=== PATIENT | female | born 1960 | race Caucasian/White ===

== ENCOUNTER → 2017-04-16 | Outpatient (CLI) | payer BC | END | disposition home or self-care (01) | LOC: MAMMO 10:11 | DX: Z12.31 Encounter for screening mammogram for malignant neoplasm of breast (principal) | CPT/HCPCS: 77067 ==

== ENCOUNTER 2019-03-27 13:37 | Emergency (ER) | payer BC ==
[2019-03-27 15:11] LABS: BASO % 0 % (0-3); EOS % 0 % (0-3); HEMATOCRIT 43.5 % (36.0-47.0); LYMPH # 0.7 x10^3/uL (1.0-4.8); LYMPH % 9 % (24-48); MEAN CORPUSCULAR HEMOGLOBIN 30 pg (25-35); MEAN CORPUSCULAR HGB CONC 35 g/dL (31-37); MEAN CORPUSCULAR VOLUME 87 fL (79-100); MONO # 0.5 x10^3/uL (0.0-1.1); MONO % 6 % (0-9); NEUT # 7.3 x10^3/uL (1.8-7.7); NEUT % 86 % (31-73); PLATELET COUNT 395 x10^3/uL (140-400); RED BLOOD COUNT 5.02 x10^6/uL (3.50-5.40); RED CELL DISTRIBUTION WIDTH 14.1 % (11.5-14.5); WHITE BLOOD COUNT 8.5 x10^3/uL (4.0-11.0)
[2019-03-27 15:23] LABS: ALBUMIN 4.1 g/dL (3.4-5.0); ALBUMIN/GLOBULIN RATIO 1.1 (1.0-1.7); CALCIUM 9.4 mg/dL (8.5-10.1); CREATININE 0.8 mg/dL (0.6-1.0); GFR 73.7; MAGNESIUM 1.3 mg/dL (1.8-2.4); TOTAL BILIRUBIN 1.2 mg/dL (0.2-1.0); TOTAL PROTEIN 7.7 g/dL (6.4-8.2)
[2019-03-27 15:26] LABS: POTASSIUM 2.8 mmol/L (3.5-5.1)
[2019-03-27] MEDS ORDERED: POTASSIUM CHLORIDE 20 MEQ TABLET.ER. PO ONE (15:30)
[2019-03-27] MEDS ORDERED: IV NORMAL SALINE 1000ML BAG 1,000 ML IV ONE (15:30)
[2019-03-27] MEDS ORDERED: ONDANSETRON PF 4 MG/2 ML VIAL. IV ONE (15:30)
[2019-03-27 15:36] LABS: BILIRUBIN,URINE NEGATIVE (NEG); CLARITY,URINE CLEAR; COLOR,URINE YELLOW; NITRITE,URINE NEGATIVE (NEG); PH,URINE 6.5; PROTEIN,URINE >=300 mg/dL (NEG-TRACE); UROBILINOGEN,URINE 0.2 mg/dL (0.2 mg/dL)
--- NOTE | 2019-03-27 15:41 | PHYS DOC ---
Past Medical History Past Medical History: High Cholesterol, Hypertension Additional Past Medical Histor: KIDNEY DISEASE, KIDNEY TRANSPLANT Past Surgical History: Other Alcohol Use: Occasionally Adult General Chief Complaint Chief Complaint: NAUSEA/VOMITING/[facility] HPI Patient is a 59 year old female, accompanied by her spouse, who presents to the emergency department with complaints of nausea and vomiting since approximately 1 AM today. Patient states she has vomited at least 12 times. She denies any fever, cough, shortness of breath, chest pain, palpitations, dysuria, increased urinary frequency, hematuria, back pain, diarrhea, or abdominal pain. She also denies any headache, dizziness, numbness, tingling, weakness, or vision changes. She currently rates her pain as 0 out of 10 on the pain scale. She reports that she has had a kidney transplant in the past and that she was able to take her blood pressure and antirejection medications this morning. She states that she has been unable to keep anything else down however. All other ROS is neg unless otherwise noted in HPI. Review of Systems Review of Systems See Above Current Medications Current Medications Current Medications Medications (Trade) Dose Ordered Sig/Ki Start Time Stop Time Status Last Admin Dose Admin Magnesium Oxide (Magnesium Oxide) 400 mg DAILY 03/28/19 09:00 Ondansetron HCl (Zofran) 4 mg 1X ONCE 03/27/19 15:30 03/27/19 15:31 DC 03/27/19 15:35 4 MG Potassium Chloride (Klor-Con) 40 meq 1X ONCE 03/27/19 15:30 03/27/19 15:31 DC 03/27/19 15:35 40 MEQ Sodium Chloride 1,000 ml @ 1,000 mls/hr 1X ONCE 03/27/19 15:30 03/27/19 16:29 03/27/19 15:35 1,000 MLS/HR Allergies Allergies Allergies Coded Allergies Type Severity Reaction Last Updated Verified acetaminophen Allergy Intermediate 03/27/19 Yes codeine Allergy Intermediate 03/27/19 Yes oxycodone Allergy Intermediate 03/27/19 Yes tramadol Allergy Intermediate 03/27/19 Yes Physical Exam Physical Exam See Above Constitutional: Well developed, well nourished, no acute distress, non-toxic appearance. [] HENT: Normocephalic, atraumatic, bilateral external ears normal, dry oral mucosa, no oral exudates, nose normal. [] Eyes: PERRLA, EOMI, conjunctiva normal, no discharge. [] Neck: Normal range of motion, no tenderness, supple, no stridor. [] Cardiovascular:Heart rate regular rhythm, no murmur [] Lungs & Thorax: Bilateral breath sounds clear to auscultation, Respirations even and unlabored, no retractions, no respiratory distress [] Abdomen: Bowel sounds normal, soft, no tenderness, no masses, no pulsatile masses. [] Skin: Warm, dry, no erythema, no rash. [] Back: No tenderness, no CVA tenderness. [] Extremities: No cyanosis, ROM intact, no edema. [] Neurologic: Alert and oriented X 3, no focal deficits noted. [] Psychologic: Affect normal, judgement normal, mood normal. [] Current Patient Data Vital Signs Vital Signs Date Time Temp Pulse Resp B/P (MAP) Pulse Ox O2 Delivery O2 Flow Rate FiO2 03/27/19 13:40 97.6 82 14 192/88 (122) 98 Room Air 97.6 Lab Values Laboratory Tests Test 03/27/19 14:10 03/27/19 15:20 White Blood Count 8.5 x10^3/uL (4.0-11.0) Red Blood Count 5.02 x10^6/uL (3.50-5.40) Hemoglobin 15.0 g/dL (12.0-15.5) Hematocrit 43.5 % (36.0-47.0) Mean Corpuscular Volume 87 fL (79-100) Mean Corpuscular Hemoglobin 30 pg (25-35) Mean Corpuscular Hemoglobin Concent 35 g/dL (31-37) Red Cell Distribution Width 14.1 % (11.5-14.5) Platelet Count 395 x10^3/uL (140-400) Neutrophils (%) (Auto) 86 % (31-73) H Lymphocytes (%) (Auto) 9 % (24-48) L Monocytes (%) (Auto) 6 % (0-9) Eosinophils (%) (Auto) 0 % (0-3) Basophils (%) (Auto) 0 % (0-3) Neutrophils # (Auto) 7.3 x10^3/uL (1.8-7.7) Lymphocytes # (Auto) 0.7 x10^3/uL (1.0-4.8) L Monocytes # (Auto) 0.5 x10^3/uL (0.0-1.1) Eosinophils # (Auto) 0.0 x10^3/uL (0.0-0.7) Basophils # (Auto) 0.0 x10^3/uL (0.0-0.2) Platelet Estimate Pending Sodium Level 134 mmol/L (136-145) L Potassium Level 2.8 mmol/L (3.5-5.1) *L Chloride Level 94 mmol/L (98-107) L Carbon Dioxide Level 26 mmol/L (21-32) Anion Gap 14 (6-14) Blood Urea Nitrogen 15 mg/dL (7-20) Creatinine 0.8 mg/dL (0.6-1.0) Estimated GFR (Cockcroft-Gault) 73.7 BUN/Creatinine Ratio 19 (6-20) Glucose Level 114 mg/dL (70-99) H Calcium Level 9.4 mg/dL (8.5-10.1) Magnesium Level 1.3 mg/dL (1.8-2.4) L Total Bilirubin 1.2 mg/dL (0.2-1.0) H Aspartate Amino Transferase (AST) 21 U/L (15-37) Alanine Aminotransferase (ALT) 19 U/L (14-59) Alkaline Phosphatase 91 U/L (46-116) Total Protein 7.7 g/dL (6.4-8.2) Albumin 4.1 g/dL (3.4-5.0) Albumin/Globulin Ratio 1.1 (1.0-1.7) Lipase 118 U/L (73-393) Urine Collection Type Unknown Urine Color Yellow Urine Clarity Clear Urine pH 6.5 Urine Specific [place] 1.015 Urine Protein >=300 mg/dL (NEG-TRACE) Urine Glucose (UA) Negative mg/dL (NEG) Urine Ketones (Stick) 15 mg/dL (NEG) Urine Blood Negative (NEG) Urine Nitrite Negative (NEG) Urine Bilirubin Negative (NEG) Urine Urobilinogen Dipstick 0.2 mg/dL (0.2 mg/dL) Urine Leukocyte Esterase Negative (NEG) Urine RBC 3-5 /HPF (0-2) Urine WBC 1-4 /HPF (0-4) Urine Squamous Epithelial Cells Few /LPF Urine Transitional Epithelial Cells Occ /LPF Urine Bacteria 0 /HPF (0-FEW) Urine Hyaline Casts Few /HPF Urine Mucus Slight /LPF Laboratory Tests 03/27/19 14:10 Laboratory Tests 03/27/19 14:10 EKG EKG [] Radiology/Procedures Radiology/Procedures [] Course & Med Decision Making Course & Med Decision Making Pertinent Labs and Imaging studies reviewed. (See chart for details) Patient's potassium was 2.8, magnesium is 1.3. Patient was given 40 meq PO potassium and 400 mg PO magnesium in the emergency department. She is also given a liter of normal saline and 4 mg of Zofran. Patient reported feeling better after these medications. She was able to tolerate by mouth meds and a by mouth fluid challenge in the emergency room without any vomiting. Vital signs are stable. CBC is unremarkable, CMP revealed sodium of 134, chloride of 94, potassium of 2.8, magnesium 1.3, and a bilirubin of 1.2, otherwise unremarkable; UA is unremarkable Prescription was written for Zofran, patient was encouraged to drink clear fluids for 24 hours and advance to brat diet then as tolerated. Follow-up with her primary care Dr. Mane on Friday, return to the ER if symptoms worsen. Patient verbalized an understanding of home care, medications, follow-up, and return to ED instructions and was in agreement with the plan of care. Plan of care was discussed with Dr. Rojas prior to discharge. [] Dragon Disclaimer Dragon Disclaimer This electronic medical record was generated, in whole or in part, using a voice recognition dictation system. Departure Departure Impression: Primary Impression: Nausea & vomiting Additional Impressions: Hypokalemia Hypomagnesemia Disposition: 01 HOME, SELF-CARE Condition: STABLE Referrals: MARCELLUS JAMISON MD (PCP) Patient Instructions: Hypokalemia, Hypomagnesemia, Nausea and Vomiting, Flmm-ck-Tayp Additional Instructions: Fill prescriptions and use them as directed. Recommend clear fluids for the next 24 hours. Then you may advance to bland foods such as bananas, rice, applesauce, and dry toast. Follow-up with your primary care doctor in the next 1-2 days. Return to the emergency room if your symptoms worsen. Scripts Ondansetron Hcl (ONDANSETRON HCL) 4 Mg Tablet 1 TAB PO PRN Q6HRS PRN for NAUSEA/VOMITING for 3 Days, #10 TAB 0 Refills Prov: KENNETH JOYA [employer] 03/27/19 Problem Qualifiers Primary Impression: Nausea & vomiting Vomiting type: unspecified Vomiting Intractability: non-intractable Qualified Codes: R11.2 - Nausea with vomiting, unspecified KENNETH JOYA [employer] Mar 27, 2019 15:41
[2019-03-27 15:47] LABS: HYALINE CASTS, URINE FEW /HPF; SQUAMOUS EPITHELIAL CELL,UR FEW /LPF
[2019-03-27 15:48] LABS: BACTERIA,URINE 0 /HPF (0-FEW)
[2019-03-27 16:03] VITALS: BP 182/85
[2019-03-27] MEDS ORDERED: ONDA-84 PO (16:30)
[2019-03-27 19:40] LABS: % ATYL 2 % (0-0); % LYMPHS 13 % (24-48); % MONOS 4 % (0-10); % SEGS 81 % (35-66); PLT ESTIMATE ADEQUATE (ADEQUATE)
[2019-03-28] MEDS ORDERED: MAGNESIUM OXIDE 400 MG TABLET PO SCH (09:00)
== END 2019-03-27 16:42 | disposition home or self-care (01) ==
LOC: ER 13:37
DX: R11.2 Nausea with vomiting, unspecified (principal); E87.6 Hypokalemia; E83.42 Hypomagnesemia; E78.00 Pure hypercholesterolemia, unspecified; I10 Essential (primary) hypertension; Z98.890 Other specified postprocedural states; Z88.5 Allergy status to narcotic agent; Z88.6 Allergy status to analgesic agent
CPT/HCPCS: 36415; 80053; 81001; 83690; 83735; 85007; 85025; 96361; 96374; 99284; J2405; J7030

== ENCOUNTER 2019-11-21 09:52 | Emergency (ER) | payer BC ==
[~2019-11-21] VITALS: Ht 157.5 cm; Wt 55.0 kg
[~2019-11-21 09:52] MED LIST: ONDA-84 PO
[2019-11-21 10:23] LABS: BILIRUBIN,URINE NEGATIVE (NEG); CLARITY,URINE CLEAR; COLOR,URINE YELLOW; NITRITE,URINE NEGATIVE (NEG); PROTEIN,URINE >=300 mg/dL (NEG-TRACE); UROBILINOGEN,URINE 0.2 mg/dL (0.2 mg/dL)
[2019-11-21 10:37] LABS: BACTERIA,URINE 0 /HPF (0-FEW); SQUAMOUS EPITHELIAL CELL,UR OCC /LPF; WBC,URINE RARE /HPF (0-4)
[2019-11-21 10:51] LABS: ALBUMIN 3.1 g/dL (3.4-5.0); ALBUMIN/GLOBULIN RATIO 0.8 (1.0-1.7); CALCIUM 8.6 mg/dL (8.5-10.1); CREATININE 0.9 mg/dL (0.6-1.0); GFR 64.3; TOTAL BILIRUBIN 1.1 mg/dL (0.2-1.0); TOTAL PROTEIN 6.9 g/dL (6.4-8.2)
[2019-11-21 10:53] LABS: BASO % 1 % (0-3); EOS # 0.1 x10^3/uL (0.0-0.7); EOS % 2 % (0-3); HEMATOCRIT 40.9 % (36.0-47.0); HEMOGLOBIN 14.1 g/dL (12.0-15.5); LYMPH % 20 % (24-48); MEAN CORPUSCULAR HEMOGLOBIN 30 pg (25-35); MEAN CORPUSCULAR HGB CONC 35 g/dL (31-37); MEAN CORPUSCULAR VOLUME 86 fL (79-100); MONO # 0.6 x10^3/uL (0.0-1.1); MONO % 12 % (0-9); NEUT # 3.2 x10^3/uL (1.8-7.7); NEUT % 65 % (31-73); PLATELET COUNT 389 x10^3/uL (140-400); RED BLOOD COUNT 4.74 x10^6/uL (3.50-5.40); RED CELL DISTRIBUTION WIDTH 13.6 % (11.5-14.5); WHITE BLOOD COUNT 4.9 x10^3/uL (4.0-11.0)
[2019-11-21 10:54] LABS: POTASSIUM 2.5 mmol/L (3.5-5.1)
--- NOTE | 2019-11-21 11:17 | RAD ---
EXAM: Right lower extremity venous Doppler sonogram. HISTORY: Pain and swelling. TECHNIQUE: Tyler scale and color Doppler sonographic evaluation of the right lower extremity veins with spectral waveform analysis was performed. FINDINGS: There is normal color flow, normal compressibility and there are normal spectral waveforms in the common femoral, superficial femoral, popliteal, posterior tibial and greater saphenous veins. IMPRESSION: No Doppler evidence of lower extremity deep venous thrombosis. Electronically signed by: Gladys Morris MD (11/21/2019 11:14 AM) [id number]
[2019-11-21] MEDS ORDERED: POTASSIUM CHLORIDE 20 MEQ TABLET.ER. PO ONE (11:30)
--- NOTE | 2019-11-21 11:52 | PHYS DOC ---
Past Medical History Past Medical History: Cancer, High Cholesterol, Hypertension, Renal Disease Additional Past Medical Histor: RT KIDNEY TRANSPLANT Past Surgical History: Appendectomy, Other Additional Past Surgical Histo: LT MASTECTOMY 2005, RT KIDNEY TRANSPLANT 2012 Smoking Status: Never Smoker Alcohol Use: Occasionally General Adult EDM: Chief Complaint: LOWER EXTREMITY SWELLING HPI: HPI: Patient is a 59 year old female who presents to the Emergency Room with bilatera l lower extremity edema. Patient states she gets some mild edema often, but not typically anything similar to this. She noticed it yesterday and it has improved mildly since then. She noticed it is worse on the R leg than the L leg. She has a kidney transplant and called her physician today who told her to go to the Emergency Room to be evaluated. She denies any pain. States her legs just feel very "tight." She denies any shortness of breath, chest pain, nausea, vomiting, diarrhea, dizziness. Review of Systems: Review of Systems: General: Denies fever, chills, sweats, fatigue Eyes: Denies drainage, blurred vision, eye redness HENT: Denies rhinorrhea, sore throat, earache Respiratory: Denies cough, shortness of breath, wheezing Cardiac: Denies palpitations, chest pain GI: Denies abdominal pain, Nausea, vomiting MSK: Denies back pain, neck pain reports lower extremity edema Skin: Denies rash, jaundice Neuro: Denies headache, dizziness Psychiatric: Denies SI/HI Heart Score: Risk Factors: Risk Factors: DM, Current or recent (<one month) smoker, HTN, HLP, family history of CAD, obesity. Risk Scores: Score 0 - 3: 2.5% MACE over next 6 weeks - Discharge Home Score 4 - 6: 20.3% MACE over next 6 weeks - Admit for Clinical Observation Score 7 - 10: 72.7% MACE over next 6 weeks - Early Invasive Strategies Current Medications: Current Medications Medications (Trade) Dose Ordered Sig/Ki Start Time Stop Time Status Last Admin Dose Admin Potassium Chloride (Klor-Con) 40 meq 1X ONCE 11/21/19 11:30 11/21/19 11:31 DC Allergies: Allergies: Allergies Coded Allergies Type Severity Reaction Last Updated Verified acetaminophen Allergy Intermediate 03/27/19 Yes codeine Allergy Intermediate 03/27/19 Yes oxycodone Allergy Intermediate 03/27/19 Yes tramadol Allergy Intermediate 03/27/19 Yes Physical Exam: PE: General: Awake, alert, NAD. Well Nourished, well hydrated. Cooperative HEENT: Atraumatic, EOMI, PERRL, airway patent, moist oral mucosa Neck: Supple, trachea midline Respiratory: CTA bilaterally, normal effort, no wheezing/crackles CV: RRR, no murmur, cap refill <2 GI: Soft, nondistended, nontender, no masses MSK: No obvious deformities, 3+ pitting edema RLE foot to knee, 1+ pitting edema LLE Skin: Warm, dry, intact Neuro: A&O x3, speech NL, sensory and motor grossly intact, no focal deficits Psych: Normal affect, normal mood, not suicidal or homicidal Current Patient Data: Labs: Laboratory Tests Test 11/21/19 10:09 11/21/19 10:25 Urine Collection Type Unknown Urine Color Yellow Urine Clarity Clear Urine pH 7.0 (<5.0-8.0) Urine Specific [place] 1.010 (1.000-1.030) Urine Protein >=300 mg/dL (NEG-TRACE) Urine Glucose (UA) Negative mg/dL (NEG) Urine Ketones (Stick) Negative mg/dL (NEG) Urine Blood Trace (NEG) Urine Nitrite Negative (NEG) Urine Bilirubin Negative (NEG) Urine Urobilinogen Dipstick 0.2 mg/dL (0.2 mg/dL) Urine Leukocyte Esterase Negative (NEG) Urine RBC 1-2 /HPF (0-2) Urine WBC Rare /HPF (0-4) Urine Squamous Epithelial Cells Occ /LPF Urine Bacteria 0 /HPF (0-FEW) White Blood Count 4.9 x10^3/uL (4.0-11.0) Red Blood Count 4.74 x10^6/uL (3.50-5.40) Hemoglobin 14.1 g/dL (12.0-15.5) Hematocrit 40.9 % (36.0-47.0) Mean Corpuscular Volume 86 fL (79-100) Mean Corpuscular Hemoglobin 30 pg (25-35) Mean Corpuscular Hemoglobin Concent 35 g/dL (31-37) Red Cell Distribution Width 13.6 % (11.5-14.5) Platelet Count 389 x10^3/uL (140-400) Neutrophils (%) (Auto) 65 % (31-73) Lymphocytes (%) (Auto) 20 % (24-48) L Monocytes (%) (Auto) 12 % (0-9) H Eosinophils (%) (Auto) 2 % (0-3) Basophils (%) (Auto) 1 % (0-3) Neutrophils # (Auto) 3.2 x10^3/uL (1.8-7.7) Lymphocytes # (Auto) 1.0 x10^3/uL (1.0-4.8) Monocytes # (Auto) 0.6 x10^3/uL (0.0-1.1) Eosinophils # (Auto) 0.1 x10^3/uL (0.0-0.7) Basophils # (Auto) 0.0 x10^3/uL (0.0-0.2) Sodium Level 137 mmol/L (136-145) Potassium Level 2.5 mmol/L (3.5-5.1) *L Chloride Level 99 mmol/L (98-107) Carbon Dioxide Level 30 mmol/L (21-32) Anion Gap 8 (6-14) Blood Urea Nitrogen 18 mg/dL (7-20) Creatinine 0.9 mg/dL (0.6-1.0) Estimated GFR (Cockcroft-Gault) 64.3 BUN/Creatinine Ratio 20 (6-20) Glucose Level 103 mg/dL (70-99) H Calcium Level 8.6 mg/dL (8.5-10.1) Total Bilirubin 1.1 mg/dL (0.2-1.0) H Aspartate Amino Transferase (AST) 39 U/L (15-37) H Alanine Aminotransferase (ALT) 35 U/L (14-59) Alkaline Phosphatase 80 U/L (46-116) Total Protein 6.9 g/dL (6.4-8.2) Albumin 3.1 g/dL (3.4-5.0) L Albumin/Globulin Ratio 0.8 (1.0-1.7) L Laboratory Tests 11/21/19 10:25 Laboratory Tests 11/21/19 10:25 Vital Signs: Vital Signs Date Time Temp Pulse Resp B/P (MAP) Pulse Ox O2 Delivery O2 Flow Rate FiO2 11/21/19 10:08 98.0 104 16 180/107 (131) 99 98.0 EKG: EKG: [] Radiology/Procedures: Radiology/Procedures: [] Course & Med Decision Making: Course & Med Decision Making Pertinent Labs and Imaging studies reviewed. (See chart for details) Patient is 59-year-old female presents the emergency room with bilateral lower extremity edema worse on the right side. The right leg has significantly worse pitting edema so an ultrasound was done to rule out DVT. Labs were ordered to r ule out kidney or liver failure and was normal. Patient does not have any chest pain or shortness of breath. She does have a low potassium and albumin which likely contribute. Patient is typically on potassium but has not taken it over the weekend. I have recommended that she restart her potassium at this time. I have recommended that she do compression stockings at home which she has at home. We have discussed that at this time Lasix is not appropriate as it will cause worsening hypokalemia. I have discussed with her that she should call her transplant surgeon tomorrow morning to follow-up. Patient's test results and vitals while in the ED were fully reviewed and discussed with the patient. Patient is stable and at this time does not need admission to the hospital. We have discussed strict return precautions and the importance of following up with their Primary Care Physician. Patient stated understanding and was given an opportunity to ask any questions. Patient is in agreement with plan. Tanesha Disclaimer: Tanesha Disclaimer: This electronic medical record was generated, in whole or in part, using a voice recognition dictation system. Departure Departure Impression: Primary Impression: Hypokalemia Additional Impression: Edema Disposition: HOME, SELF-CARE Condition: STABLE Referrals: TRENTON LÓPEZ MD (PCP) Patient Instructions: Hypokalemia, Peripheral Edema Justicifation of Admission Dx: Justifications for Admission: Justification of Admission Dx: N/A MAE STEVENSON MD Nov 21, 2019 11:52
[2019-11-21 12:00] VITALS: BP 148/82
== END 2019-11-21 12:09 | disposition home or self-care (01) ==
LOC: ER 09:52
DX: E87.6 Hypokalemia (principal); R60.0 Localized edema; M79.89 Other specified soft tissue disorders; E78.00 Pure hypercholesterolemia, unspecified; I10 Essential (primary) hypertension; Z90.89 Acquired absence of other organs; Z85.9 Personal history of malignant neoplasm, unspecified; Z98.890 Other specified postprocedural states; Z88.5 Allergy status to narcotic agent; Z88.8 Allergy status to other drugs, medicaments and biological substances
CPT/HCPCS: 36415; 80053; 81001; 85025; 93971; 99284

== ENCOUNTER 2020-03-10 07:39 | Inpatient (IN) | payer BC, OTHER ==
[~2020-03-10] VITALS: Ht 157.5 cm; Wt 57.8 kg
[2020-03-10 08:19] LABS: BASO # 0.1 x10^3/uL (0.0-0.2); BASO % 1 % (0-3); EOS # 0.2 x10^3/uL (0.0-0.7); EOS % 2 % (0-3); HEMATOCRIT 40.6 % (36.0-47.0); HEMOGLOBIN 13.3 g/dL (12.0-15.5); LYMPH # 0.8 x10^3/uL (1.0-4.8); LYMPH % 9 % (24-48); MEAN CORPUSCULAR HEMOGLOBIN 29 pg (25-35); MEAN CORPUSCULAR HGB CONC 33 g/dL (31-37); MEAN CORPUSCULAR VOLUME 90 fL (79-100); MONO # 0.7 x10^3/uL (0.0-1.1); MONO % 8 % (0-9); NEUT # 7.3 x10^3/uL (1.8-7.7); NEUT % 80 % (31-73); PLATELET COUNT 290 x10^3/uL (140-400); RED BLOOD COUNT 4.53 x10^6/uL (3.50-5.40); RED CELL DISTRIBUTION WIDTH 14.2 % (11.5-14.5); WHITE BLOOD COUNT 9.1 x10^3/uL (4.0-11.0)
[2020-03-10 08:29] LABS: CALCIUM 8.8 mg/dL (8.5-10.1); CREATININE 1.1 mg/dL (0.6-1.0); POTASSIUM 4.8 mmol/L (3.5-5.1)
[2020-03-10 08:38] LABS: ALBUMIN 2.8 g/dL (3.4-5.0); ALBUMIN/GLOBULIN RATIO 0.9 (1.0-1.7); TOTAL BILIRUBIN 1.4 mg/dL (0.2-1.0); TOTAL PROTEIN 5.8 g/dL (6.4-8.2)
--- NOTE | 2020-03-10 08:54 | ED.ADGEN ---
Past Medical History Past Medical History: Cancer, High Cholesterol, Hypertension, Renal Disease Additional Past Medical Histor: RT KIDNEY TRANSPLANT Past Surgical History: Appendectomy, Other Additional Past Surgical Histo: LT MASTECTOMY 2005, RT KIDNEY TRANSPLANT 2012 Smoking Status: Never Smoker Alcohol Use: Occasionally General Adult EDM: Chief Complaint: SHORTNESS OF BREATH HPI: HPI: Patient is 59-year-old female past medical history of kidney transplant and hypertension who presents to the emergency room complaining of shortness of breath. This started about 3 weeks ago and initially was intermittent. She also had some associated bilateral leg swelling. She saw her primary care doctor who started her on Lasix. She has an appointment with cardiology in 3 weeks to be evaluated for possible congestive heart failure. She states that the swelling in her legs have greatly improved. She is now mostly having shortness of breath that is worse if she gets up and moves. She states is impossible to walk stairs due to shortness of breath. She ran out of Lasix right before [place]. She denies any cough, fever, runny nose, sore throat, abdominal pain, nausea, vomiting. Review of Systems: Review of Systems: Complete ROS is negative unless otherwise documented in HPI Allergies: Allergies: Allergies Coded Allergies Type Severity Reaction Last Updated Verified acetaminophen Allergy Intermediate 03/27/19 Yes codeine Allergy Intermediate 03/27/19 Yes oxycodone Allergy Intermediate 03/27/19 Yes tramadol Allergy Intermediate 03/27/19 Yes Physical Exam: PE: General: Awake, alert, NAD. Well Nourished, well hydrated. Cooperative HEENT: Atraumatic, EOMI, PERRL, airway patent, moist oral mucosa Neck: Supple, trachea midline Respiratory: CTA bilaterally, normal effort, diffuse crackles CV: RRR, no murmur, cap refill <2 GI: Soft, nondistended, nontender, no masses MSK: No obvious deformities Skin: Warm, dry, intact Neuro: A&O x3, speech NL, sensory and motor grossly intact, no focal deficits Psych: Normal affect, normal mood, not suicidal or homicidal Current Patient Data: Labs: Laboratory Tests Test 03/10/20 08:09 White Blood Count 9.1 x10^3/uL (4.0-11.0) Red Blood Count 4.53 x10^6/uL (3.50-5.40) Hemoglobin 13.3 g/dL (12.0-15.5) Hematocrit 40.6 % (36.0-47.0) Mean Corpuscular Volume 90 fL (79-100) Mean Corpuscular Hemoglobin 29 pg (25-35) Mean Corpuscular Hemoglobin Concent 33 g/dL (31-37) Red Cell Distribution Width 14.2 % (11.5-14.5) Platelet Count 290 x10^3/uL (140-400) Neutrophils (%) (Auto) 80 % (31-73) H Lymphocytes (%) (Auto) 9 % (24-48) L Monocytes (%) (Auto) 8 % (0-9) Eosinophils (%) (Auto) 2 % (0-3) Basophils (%) (Auto) 1 % (0-3) Neutrophils # (Auto) 7.3 x10^3/uL (1.8-7.7) Lymphocytes # (Auto) 0.8 x10^3/uL (1.0-4.8) L Monocytes # (Auto) 0.7 x10^3/uL (0.0-1.1) Eosinophils # (Auto) 0.2 x10^3/uL (0.0-0.7) Basophils # (Auto) 0.1 x10^3/uL (0.0-0.2) Sodium Level 137 mmol/L (136-145) Potassium Level 4.8 mmol/L (3.5-5.1) Chloride Level 107 mmol/L (98-107) Carbon Dioxide Level 24 mmol/L (21-32) Anion Gap 6 (6-14) Blood Urea Nitrogen 24 mg/dL (7-20) H Creatinine 1.1 mg/dL (0.6-1.0) H Estimated GFR (Cockcroft-Gault) 51.0 BUN/Creatinine Ratio 22 (6-20) H Glucose Level 121 mg/dL (70-99) H Calcium Level 8.8 mg/dL (8.5-10.1) Total Bilirubin 1.4 mg/dL (0.2-1.0) H Aspartate Amino Transferase (AST) 49 U/L (15-37) H Alanine Aminotransferase (ALT) 78 U/L (14-59) H Alkaline Phosphatase 108 U/L (46-116) Troponin I Quantitative < 0.017 ng/mL (0.000-0.055) VF-Tep-P-Type Natriuretic Peptide 7866 pg/mL (0-124) H Total Protein 5.8 g/dL (6.4-8.2) L Albumin 2.8 g/dL (3.4-5.0) L Albumin/Globulin Ratio 0.9 (1.0-1.7) L Thyroid Stimulating Hormone (TSH) 1.970 uIU/mL (0.358-3.74) Laboratory Tests 03/10/20 08:09 Laboratory Tests 03/10/20 08:09 Vital Signs: Vital Signs Date Time Temp Pulse Resp B/P (MAP) Pulse Ox O2 Delivery O2 Flow Rate FiO2 03/10/20 08:48 68 18 201/85 (123) 97 Room Air 03/10/20 07:45 97.6 97.6 EKG: EKG: [] Heart Score: Risk Factors: Risk Factors: DM, Current or recent (<one month) smoker, HTN, HLP, family history of CAD, obesity. Risk Scores: Score 0 - 3: 2.5% MACE over next 6 weeks - Discharge Home Score 4 - 6: 20.3% MACE over next 6 weeks - Admit for Clinical Observation Score 7 - 10: 72.7% MACE over next 6 weeks - Early Invasive Strategies Radiology/Procedures: Radiology/Procedures: [] Course & Med Decision Making: Course & Med Decision Making Pertinent Labs and Imaging studies reviewed. (See chart for details) Patient is a 59-year-old female who presents to the emergency room complaining of shortness of breath. At this time there is concern that patient has new onset congestive heart failure. She does have pulmonary edema on chest x-ray. She has an elevated BNP and some mildly elevated LFTs which could be due to a heart failure. Patient will be admitted to the hospital for evaluation by cardiology. Tanesha Disclaimer: Tanesha Disclaimer: This electronic medical record was generated, in whole or in part, using a voice recognition dictation system. Departure Departure Impression: Primary Impression: New onset of congestive heart failure Additional Impressions: Pulmonary edema Hypertension Disposition: 09 ADMITTED INPT THIS HOSP Condition: STABLE Referrals: TRENTON LÓPEZ MD (PCP) Problem Qualifiers MAE STEVENSON MD Mar 10, 2020 08:54
--- NOTE | 2020-03-10 08:55 | RAD ---
EXAM: XR CHEST 1V 03/10/2020 8:34 AM CLINICAL INDICATION: Shortness of breath COMPARISON: Chest radiograph 02/22/2020 TECHNIQUE: AP upright view of the chest FINDINGS: Cardiomegaly is unchanged. The lungs are well-expanded. Small pleural effusions and diffus e interstitial prominence is unchanged. No focal consolidation. No pneumothorax. There are surgical c lips in the left axilla. IMPRESSION: Unchanged cardiomegaly, small pleural effusions, and probable pulmonary vascular congest ion. Electronically signed by: Gala Garvin MD (03/10/2020 8:53 AM) [id number]
[2020-03-10] MEDS ORDERED: FUROSEMIDE 40 MG/4 ML VIAL. IVP ONE (09:00)
[2020-03-10] MEDS ORDERED: LABETALOL 20 MG/4 ML DISP.SYRIN. IVP ONE (09:00)
[2020-03-10 09:55] VITALS: BP 160/91
[2020-03-10] MEDS ORDERED: SODIUM PHOSPHATES 19/7GM 133 ML ENEMA. PR PRN (10:00)
[2020-03-10] MEDS ORDERED: ONDANSETRON PF 4 MG/2 ML VIAL. IV PRN (10:00)
[2020-03-10] MEDS ORDERED: ACETAMINOPHEN 325 MG TABLET. PO PRN (10:00)
[2020-03-10] MEDS ORDERED: 0.9 % SODIUM CHLORIDE 10 ML DISP.SYRIN. IV PRN (10:00)
[2020-03-10] MEDS ORDERED: ZOLPIDEM 5 MG TABLET. PO PRN (10:00)
[2020-03-10] MEDS ORDERED: guaiFENesin ORAL 200 MG/10 ML LIQUID. PO PRN (10:00)
[2020-03-10] MEDS ORDERED: MAG HYDROX/ALUMINUM HYD/SIMETH 30 ML ORAL.SUSP PO PRN (10:00)
[2020-03-10] MEDS ORDERED: DOCUSATE SODIUM 100 MG CAPSULE. PO PRN (10:00)
[2020-03-10] MEDS ORDERED: ALBUTEROL SULFATE 2.5 MG/3 ML NEBU. NEB PRN (10:00)
--- NOTE | 2020-03-10 10:00 | PDOC1 ---
History and Physical Date of Admission Date of Admission DATE: 03/10/20 TIME: 09:54 Identification/Chief Complaint Chief Complaint seen in er with new onset chf, has been consuming lost of salty food given the 59 -year-old female past medical history of kidney transplant and hypertension who presents to the emergency room complaining of shortness of breath. This started about 3 weeks ago and initially was intermittent. She also had some associated bilateral leg swelling. primary care doctor started her on Lasix., has an appointment with cardiology in 3 weeks to be evaluated for possible congestive heart failure. // swelling in her legs have greatly improved., now mostly having shortness of breath that is worse if she gets up and moves. > 20 feet states is impossible to walk stairs due to shortness of breath. She ran out of Lasix 12-24 . // denies any cough, fever, runny nose, sore throat, abdominal pain, nausea, vomiting. Past Medical History Past Medical History Past Medical History Past Medical History Past Medical History: Cancer, High Cholesterol, Hypertension, Renal Disease Additional Past Medical Histor: RT KIDNEY TRANSPLANT 2013 research [employer] Past Surgical History: Appendectomy, Other Additional Past Surgical Histo: LT MASTECTOMY 2005, RT KIDNEY TRANSPLANT 2012 Smoking Status: Never Smoker Alcohol Use: Occasionally Cardiovascular: HTN Pulmonary: No pertinent hx GI: No pertinent hx Heme/Onc: No pertinent hx Hepatobiliary: No pertinent hx Psych: No pertinent hx Renal/: Chronic renal insuff Past Surgical History Past Surgical History renal transplant 2012 Family History Family History: Hypertension, Kidney Disease Social History Smoke: Quit ALCOHOL: none Drugs: None Current Problem List Problem List Problems Medical Problems: (1) Hypertension Status: Acute (2) New onset of congestive heart failure Status: Acute (3) Pulmonary edema Status: Acute Current Medications Current Medications Current Medications Furosemide (Lasix) 40 mg 1X ONCE IVP Last administered on 03/10/20at 09:10; Start 03/10/20 at 09:00; Stop 03/10/20 at 09:06; Status DC Labetalol HCl (Normodyne Iv Push) 10 mg 1X ONCE IVP Last administered on 03/10/20at 09:09; Start 03/10/20 at 09:00; Stop 03/10/20 at 09:06; Status DC Active Scripts Active Ondansetron Hcl 4 Mg Tablet 1 Tab PO PRN Q6HRS PRN 3 Days Allergies Allergies: Coded Allergies: acetaminophen (Verified Allergy, Intermediate, 03/27/19) codeine (Verified Allergy, Intermediate, 03/27/19) oxycodone (Verified Allergy, Intermediate, 03/27/19) tramadol (Verified Allergy, Intermediate, 03/27/19) ROS Review of System 14 pt ros otherwise neg General: YES: Fatigue; No: Chills, Night Sweats, Malaise, Appetite, Other PSYCHOLOGICAL ROS: No: Anxiety, Behavioral Disorder, Concentration difficultie, Decreased libido, Depression, Disorientation, Hallucinations, Hostility, Irritablity, Memory difficulties, Mood Swings, Obsessive thoughts, Physical abuse, Sexual abuse, Sleep disturbances, Suicidal ideation, Other Eyes: No Blurry vision, No Decreased vision, No Double vision, No Dry eyes, No Excessive tearing, No Eye Pain, No Itchy Eyes, No Loss of vision, No Photophobia, No Scotomata, No Uses contacts, No Uses glasses, No Other Hematological and Lymphatic: No: Bleeding Problems, Blood Clots, Blood Transf usions, Brusing, Night Sweats, Pallor, Swollen Lymph Nodes, Other ENDOCRINE: No: Breast Changes, Galactorrhea, Hair Pattern Changes, Hot Flashes, Malaise/lethargy, Mood Swings, Palpitations, Polydipsia/polyuria, Skin Changes, Temperature Intolerance, Unexpected Weight Changes, Other Breast: No New/Changing Breast Lumps, No Nipple changes, No Nipple discharge, No Other Respiratory: YES: Shortness of breath, SOB with excertion; No: Cough, Hemoptysis, Orthopnea, Pleuritic Pain, Sputum Changes, Stridor, Tachypnea, Wheezing, Other Cardiovascular: yes Orthopnea; No Chest Pain, No Palpitations, No Paroxysmal Noc. Dyspnea, No Edema, No Lt Headedness, No Other Gastrointestinal: No Nausea, No Vomiting, No Abdominal Pain, No Diarrhea, No Constipation, No Melena, No Hematochezia, No Other Genitourinary: No Dysuria, No Frequency, No Incontinence, No Hematuria, No Retention, No Discharge, No Urgency, No Pain, No Flank Pain, No Other, No , No , No , No , No , No , No Musculoskeletal: No Gait Disturbance, No Joint Pain, No Joint Stiffness, No Joint Swelling, No Muscle Pain, No Muscular Weakness, No Pain In:, No Swelling In:, No Other Neurological: No Behavorial Changes, No Bowel/Bladder ControlChng, No Confusion, No Dizziness, No Gait Disturbance, No Headaches, No Impaired Coord/balance, No Memory Loss, No Numbness/Tingling, No Seizures, No Speech Problems, No Tremors, No Visual Changes, No Weakness, No Other Skin: No Dry Skin, No Eczema, No Hair Changes, No Lumps, No Mole Changes, No Mottling, No Nail Changes, No Pruritus, No Rash, No Skin Lesion Changes, No Other, No Acne Physical Exam Physical Exam PE: General: Awake, alert, NAD. Well Nourished, well hydrated. Cooperative HEENT: Atraumatic, EOMI, PERRL, airway patent, moist oral mucosa Neck: Supple, trachea midline Respiratory: CTA bilaterally, normal effort, diffuse crackles CV: RRR, no murmur, cap refill <2 GI: Soft, nondistended, nontender, no masses MSK: No obvious deformities Skin: Warm, dry, intact Neuro: A&O x3, speech NL, sensory and motor grossly intact, no focal deficits General: Alert, Oriented X3, Cooperative, No acute distress Lungs: Clear to auscultation, Normal air movement Heart: RRR, no thrills Breasts: Not examined Abdomen: Normal bowel sounds, Soft Rectal Exam: not examined PELVIC: Examination not indicated Extremities: No cyanosis Neuro: Normal speech, Strength at 5/5 X4 ext, Sensation intact, Cranial nerves 3-12 NL Psych/Mental Status: Mental status NL, Mood NL Vitals Vitals Vital Signs Date Time Temp Pulse Resp B/P (MAP) Pulse Ox O2 Delivery O2 Flow Rate FiO2 03/10/20 09:09 68 201/85 03/10/20 08:18 18 97 Room Air 03/10/20 07:45 97.6 97.6 Labs Labs Laboratory Tests Test 03/10/20 08:09 White Blood Count 9.1 x10^3/uL (4.0-11.0) Red Blood Count 4.53 x10^6/uL (3.50-5.40) Hemoglobin 13.3 g/dL (12.0-15.5) Hematocrit 40.6 % (36.0-47.0) Mean Corpuscular Volume 90 fL (79-100) Mean Corpuscular Hemoglobin 29 pg (25-35) Mean Corpuscular Hemoglobin Concent 33 g/dL (31-37) Red Cell Distribution Width 14.2 % (11.5-14.5) Platelet Count 290 x10^3/uL (140-400) Neutrophils (%) (Auto) 80 % (31-73) Lymphocytes (%) (Auto) 9 % (24-48) Monocytes (%) (Auto) 8 % (0-9) Eosinophils (%) (Auto) 2 % (0-3) Basophils (%) (Auto) 1 % (0-3) Neutrophils # (Auto) 7.3 x10^3/uL (1.8-7.7) Lymphocytes # (Auto) 0.8 x10^3/uL (1.0-4.8) Monocytes # (Auto) 0.7 x10^3/uL (0.0-1.1) Eosinophils # (Auto) 0.2 x10^3/uL (0.0-0.7) Basophils # (Auto) 0.1 x10^3/uL (0.0-0.2) Sodium Level 137 mmol/L (136-145) Potassium Level 4.8 mmol/L (3.5-5.1) Chloride Level 107 mmol/L (98-107) Carbon Dioxide Level 24 mmol/L (21-32) Anion Gap 6 (6-14) Blood Urea Nitrogen 24 mg/dL (7-20) Creatinine 1.1 mg/dL (0.6-1.0) Estimated GFR (Cockcroft-Gault) 51.0 BUN/Creatinine Ratio 22 (6-20) Glucose Level 121 mg/dL (70-99) Calcium Level 8.8 mg/dL (8.5-10.1) Total Bilirubin 1.4 mg/dL (0.2-1.0) Aspartate Amino Transf (AST/SGOT) 49 U/L (15-37) Alanine Aminotransferase (ALT/SGPT) 78 U/L (14-59) Alkaline Phosphatase 108 U/L (46-116) Troponin I Quantitative < 0.017 ng/mL (0.000-0.055) ZF-Zaa-J-Type Natriuretic Peptide 7866 pg/mL (0-124) Total Protein 5.8 g/dL (6.4-8.2) Albumin 2.8 g/dL (3.4-5.0) Albumin/Globulin Ratio 0.9 (1.0-1.7) Laboratory Tests Test 03/10/20 08:09 White Blood Count 9.1 x10^3/uL (4.0-11.0) Red Blood Count 4.53 x10^6/uL (3.50-5.40) Hemoglobin 13.3 g/dL (12.0-15.5) Hematocrit 40.6 % (36.0-47.0) Mean Corpuscular Volume 90 fL (79-100) Mean Corpuscular Hemoglobin 29 pg (25-35) Mean Corpuscular Hemoglobin Concent 33 g/dL (31-37) Red Cell Distribution Width 14.2 % (11.5-14.5) Platelet Count 290 x10^3/uL (140-400) Neutrophils (%) (Auto) 80 % (31-73) Lymphocytes (%) (Auto) 9 % (24-48) Monocytes (%) (Auto) 8 % (0-9) Eosinophils (%) (Auto) 2 % (0-3) Basophils (%) (Auto) 1 % (0-3) Neutrophils # (Auto) 7.3 x10^3/uL (1.8-7.7) Lymphocytes # (Auto) 0.8 x10^3/uL (1.0-4.8) Monocytes # (Auto) 0.7 x10^3/uL (0.0-1.1) Eosinophils # (Auto) 0.2 x10^3/uL (0.0-0.7) Basophils # (Auto) 0.1 x10^3/uL (0.0-0.2) Sodium Level 137 mmol/L (136-145) Potassium Level 4.8 mmol/L (3.5-5.1) Chloride Level 107 mmol/L (98-107) Carbon Dioxide Level 24 mmol/L (21-32) Anion Gap 6 (6-14) Blood Urea Nitrogen 24 mg/dL (7-20) Creatinine 1.1 mg/dL (0.6-1.0) Estimated GFR (Cockcroft-Gault) 51.0 BUN/Creatinine Ratio 22 (6-20) Glucose Level 121 mg/dL (70-99) Calcium Level 8.8 mg/dL (8.5-10.1) Total Bilirubin 1.4 mg/dL (0.2-1.0) Aspartate Amino Transf (AST/SGOT) 49 U/L (15-37) Alanine Aminotransferase (ALT/SGPT) 78 U/L (14-59) Alkaline Phosphatase 108 U/L (46-116) Troponin I Quantitative < 0.017 ng/mL (0.000-0.055) CT-Eui-U-Type Natriuretic Peptide 7866 pg/mL (0-124) Total Protein 5.8 g/dL (6.4-8.2) Albumin 2.8 g/dL (3.4-5.0) Albumin/Globulin Ratio 0.9 (1.0-1.7) Images Images EXAM: Right lower extremity venous Doppler sonogram. HISTORY: Pain and swelling. TECHNIQUE: Tyler scale and color Doppler sonographic evaluation of the right lower extremity veins with spectral waveform analysis was performed. FINDINGS: There is normal color flow, normal compressibility and there are normal spectral waveforms in the common femoral, superficial femoral, popliteal, posterior tibial and greater saphenous veins. IMPRESSION: No Doppler evidence of lower extremity deep venous thrombosis. Electronically signed by: Gladys Shaffer MD (11/21/2019 11:14 AM) [id number] DICTATED and SIGNED BY: GLADYS SHAFFER MD DATE: 11/21/19 1114 EXAM: XR CHEST 1V 03/10/2020 8:34 AM CLINICAL INDICATION: Shortness of breath COMPARISON: Chest radiograph 02/22/2020 TECHNIQUE: AP upright view of the chest FINDINGS: Cardiomegaly is unchanged. The lungs are well-expanded. Small pleural effusions and diffuse interstitial prominence is unchanged. No focal consolidation. No pneumothorax. There are surgical clips in the left axilla. IMPRESSION: Unchanged cardiomegaly, small pleural effusions, and probable pulmonary vascular congestion. Electronically signed by: Gala Garvin MD (03/10/2020 8:53 AM) [id number] DICTATED and SIGNED BY: GALA GARVIN MD DATE: 03/10/20 [id number] VTE Prophylaxis Ordered VTE Prophylaxis Devices: Yes VTE Pharmacological Prophylaxi: Yes Assessment/Plan Assessment/Plan Impression: New onset of congestive heart failure hx renal transplant Pulmonary edema, new onset Hypertension, urgency transaminitis ADMITTED cvc bed UDS Consult cardiology tsh echo consult nephrology iv lasix 20mg bid dvt prophylaxis low sodium intake D/W ER DR Justifications for Admission Other Justification JACK SYLVESTER MD Mar 10, 2020 10:00
[2020-03-10] MEDS ORDERED: LABETALOL 20 MG/4 ML DISP.SYRIN. IVP PRN (10:15)
[2020-03-10] MEDS: FUROSEMIDE 20 MG/2 ML VIAL. IVP SCH ×2 (10:30→14:52)
[2020-03-10] MEDS ORDERED: MYCO360T3 PO (10:42)
[2020-03-10] MEDS ORDERED: TACR0.5C2 PO ×2 (10:42)
[2020-03-10] MEDS ORDERED: MAGN200T7 PO (10:42)
[2020-03-10] MEDS ORDERED: OMEG1CAP50 PO (10:42)
[2020-03-10] MEDS ORDERED: POTA20TA4 PO (10:42)
[2020-03-10] MEDS ORDERED: OMEG-128 PO (10:42)
[2020-03-10] MEDS ORDERED: PROAIR RESPICL90 MCG IH (10:42)
[2020-03-10] MEDS ORDERED: METO100T7 PO (10:42)
[2020-03-10] MEDS ORDERED: MAGNESIUM SULFATE 2GM 50 ML IV PRN (10:45)
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
[2020-03-10] MEDS: ENOXAPARIN 40 MG/0.4 ML SYRINGE. SQ SCH (11:56)
[2020-03-10] MEDS ORDERED: ONDANSETRON ODT 4 MG TAB.RAPDIS. PO PRN (12:00)
[2020-03-10] MEDS: OMEGA-3 FATTY ACIDS/FISH OIL 1,000 MG CAPSULE. PO SCH (12:00)
[2020-03-10] MEDS: TACROLIMUS 0.5 MG CAPSULE. PO SCH (12:00)
[2020-03-10] MEDS: METOPROLOL TART IMMED RELEASE 50 MG TABLET. PO SCH ×2 (12:00→20:51)
[2020-03-10] MEDS ORDERED: NON FORMULARY ITEM (Albuterol Sulfate (Proair Respiclick) 2 PUFF) IH PRN (12:00)
[2020-03-10] MEDS: MYCOPHENOLATE ACID 180 MG TABLET.DR. PO SCH ×2 (12:00→20:51)
[2020-03-10 12:55] LABS: BILIRUBIN,URINE NEGATIVE (NEG); CLARITY,URINE CLEAR; COLOR,URINE YELLOW; NITRITE,URINE NEGATIVE (NEG); PROTEIN,URINE NEGATIVE (NEG-TRACE); UROBILINOGEN,URINE 0.2 mg/dL (0.2 mg/dL)
[2020-03-10 13:05] LABS: AMPHETAMINE/METHAMPHETAMINE NEG (NEG); BARBITURATES NEG (NEG); BENZODIAZEPINES NEG (NEG); CANNABINOIDS NEG (NEG); COCAINE NEG (NEG); METHADONE NEG (NEG); OPIATES NEG (NEG); PHENCYCLIDINE NEG (NEG)
[2020-03-10 13:24] LABS: BACTERIA,URINE 0 /HPF (0-FEW); RBC,URINE 0 /HPF (0-2); WBC,URINE 0 /HPF (0-4)
--- NOTE | 2020-03-10 13:43 | PDOC2 ---
CONSULT Date of Consult Date of Consult DATE: 03/10/20 TIME: 13:37 Reason for Consult Reason for Consult: Heart failure Referring Physician Referring Physician: Dr. Chandler Identification/Chief Complaint Chief Complaint Shortness of breath Source Source: Chart review, Patient History of Present Illness Reason for Visit: The patient is a 59-year-old female who reports 3 weeks of gradually increasing shortness of breath. She was admitted through the emergency room once for shortness of breath became more severe. She apparently was treated for a period of time with Lasix which improved her shortness of breath but she has not taken any Lasix since approximately [place] time. She has a history of chronic kidney disease and is status post a right kidney transplant in 2012. She additionally has a history of hypertension and hyperlipidemia. She has been treated with Lasix overnight and is feeling better today. Chest x-ray shows cardiomegaly with pulmonary vascular congestion. Troponin is normal at 0.017. BNP is elevated at 7866. The patient denies chest pain. Past Medical History Cardiovascular: HTN, Hyperlipidemia Heme/Onc: Cancer Renal/: Chronic renal insuff Past Surgical History Past Surgical History: Appendectomy, Mastectomy, Other (Right kidney transplant in 2012) Family History Family History: Hypertension Social History No ALCOHOL: occassional Current Problem List Problem List Problems Medical Problems: (1) Hypertension Status: Acute (2) New onset of congestive heart failure Status: Acute (3) Pulmonary edema Status: Acute Current Medications Current Medications Current Medications Furosemide (Lasix) 40 mg 1X ONCE IVP Last administered on 03/10/20at 09:10; Start 03/10/20 at 09:00; Stop 03/10/20 at 09:06; Status DC Labetalol HCl (Normodyne Iv Push) 10 mg 1X ONCE IVP Last administered on 03/10/20at 09:09; Start 03/10/20 at 09:00; Stop 03/10/20 at 09:06; Status DC Sodium Chloride (Normal Saline Flush) 3 ml QSHIFT PRN IV AFTER MEDS AND BLOOD DRAWS; Start 03/10/20 at 10:00 Ondansetron HCl (Zofran) 4 mg PRN Q4HRS PRN IV NAUSEA/VOMITING; Start 03/10/20 at 10:00 Zolpidem Tartrate (Ambien) 5 mg PRN QHS PRN PO INSOMNIA; Start 03/10/20 at 10:00 Acetaminophen (Tylenol) 650 mg PRN Q4HRS PRN PO TEMP OVER 100.4F OR MILD PAIN; Start 03/10/20 at 10:00; Status UNV Al Hydroxide/Mg Hydroxide (Mylanta Plus Xs) 30 ml PRN DAILY PRN PO HEARTBURN / GAS; Start 03/10/20 at 10:00 Sodium Monofluorophosphate (Fleet Adult) 133 ml PRN DAILY PRN PA CONSTIPATION; Start 03/10/20 at 10:00; Stop 03/10/20 at 10:46; Status DC Docusate Sodium (Colace) 100 mg PRN BID PRN PO HARD STOOLS; Start 03/10/20 at 10:00 Albuterol Sulfate (Ventolin Neb Soln) 2.5 mg PRN Q4HRS PRN NEB SHORTNESS OF BREATH; Start 03/10/20 at 10:00 Guaifenesin (Robitussin) 200 mg PRN Q4HRS PRN PO COUGH; Start 03/10/20 at 10:00 Enoxaparin Sodium (Lovenox 40mg Syringe) 40 mg Q24H SQ Last administered on 03/10/20at 11:56; Start 03/10/20 at 11:00 Labetalol HCl (Normodyne Iv Push) 20 mg PRN Q2HR PRN IVP HYPERTENSION; Start 03/10/20 at 10:15 Furosemide (Lasix) 20 mg BID92 IVP ; Start 03/10/20 at 10:30 Magnesium Sulfate 50 ml @ 25 mls/hr PRN DAILY PRN IV for Mag < 1.7 on am labs; Start 03/10/20 at 10:45 Fish Oil (Fish Oil) 1,000 mg DAILY PO ; Start 03/10/20 at 12:00 Potassium Chloride (Klor-Con) 20 meq BIDWMEALS PO ; Start 03/10/20 at 17:00 Tacrolimus (Prograf) 1 mg HS PO ; Start 03/10/20 at 21:00 Tacrolimus (Prograf) 1.5 mg DAILY PO ; Start 03/10/20 at 12:00 Non-Formulary Medication (Albuterol Sulfate (Proair Respiclick)) 2 puff PRN Q4- 6HRS PRN IH shortness of breath; Start 03/10/20 at 12:00; Stop 03/10/20 at 11:58; Status DC Magnesium Oxide (Magnesium Oxide) 400 mg HS PO ; Start 03/10/20 at 21:00 Metoprolol Tartrate (Lopressor) 100 mg BID PO ; Start 03/10/20 at 12:00 Mycophenolate Sodium (Myfortic) 360 mg BID PO ; Start 03/10/20 at 12:00 Non-Formulary Medication ([place]-3/Dha/Epa/ Fish Oil ([place] 3 500 Softgel)) 1 cap DAILY PO ; Start 03/11/20 at 09:00; Status UNV Ondansetron HCl (Zofran Odt) 4 mg PRN Q6HRS PRN PO NAUSEA/VOMITING; Start 03/10/20 at 12:00 Active Scripts Active Ondansetron Hcl 4 Mg Tablet 1 Tab PO PRN Q6HRS PRN 3 Days Reported Mag-Oxide (Magnesium Oxide) 200 Mg Tablet 1 Tab PO HS 30 Days [place] 3 500 Softgel ([place]ano-3/Dha/Epa/Fish Oil) 1 Each Capsule 1 Cap PO DAILY 30 Days Fish Oil 1,000 Mg Softgel ([place]-3 Fatty Acids/Fish Oil) 1 Each Capsule 1 Cap PO DAILY 30 Days Potassium Chloride (Potassium Chloride) 20 Meq Tablet.er 20 Meq PO BID Proair Respiclick (Albuterol Sulfate) 90 Mcg Aer.pow.ba 2 Puff IH PRN Q4-6HRS PRN Mycophenolic Acid (Mycophenolate Sodium) 360 Mg Tablet.dr 360 Mg PO BID Metoprolol Tartrate 100 Mg Tablet 1 Tab PO BID Tacrolimus 0.5 Mg Capsule 1 Mg PO HS Tacrolimus 0.5 Mg Capsule 1.5 Mg PO DAILY Allergies Allergies: Coded Allergies: acetaminophen (Verified Allergy, Intermediate, 03/27/19) codeine (Verified Allergy, Intermediate, 03/27/19) oxycodone (Verified Allergy, Intermediate, 03/27/19) tramadol (Verified Allergy, Intermediate, 03/27/19) ROS Respiratory: YES: Shortness of breath, SOB with excertion Physical Exam General: mild distress HEENT: Atraumatic Lungs: Other (Decreased breath sounds bilaterally) Heart: Regular rate Abdomen: Normal bowel sounds Vitals VITALS Vital Signs Date Time Temp Pulse Resp B/P (MAP) Pulse Ox O2 Delivery O2 Flow Rate FiO2 03/10/20 10:15 Room Air 03/10/20 09:55 97.6 72 18 160/91 (114) 94 97.6 Labs Labs Laboratory Tests Test 03/10/20 08:09 03/10/20 12:36 White Blood Count 9.1 x10^3/uL (4.0-11.0) Red Blood Count 4.53 x10^6/uL (3.50-5.40) Hemoglobin 13.3 g/dL (12.0-15.5) Hematocrit 40.6 % (36.0-47.0) Mean Corpuscular Volume 90 fL (79-100) Mean Corpuscular Hemoglobin 29 pg (25-35) Mean Corpuscular Hemoglobin Concent 33 g/dL (31-37) Red Cell Distribution Width 14.2 % (11.5-14.5) Platelet Count 290 x10^3/uL (140-400) Neutrophils (%) (Auto) 80 % (31-73) Lymphocytes (%) (Auto) 9 % (24-48) Monocytes (%) (Auto) 8 % (0-9) Eosinophils (%) (Auto) 2 % (0-3) Basophils (%) (Auto) 1 % (0-3) Neutrophils # (Auto) 7.3 x10^3/uL (1.8-7.7) Lymphocytes # (Auto) 0.8 x10^3/uL (1.0-4.8) Monocytes # (Auto) 0.7 x10^3/uL (0.0-1.1) Eosinophils # (Auto) 0.2 x10^3/uL (0.0-0.7) Basophils # (Auto) 0.1 x10^3/uL (0.0-0.2) Sodium Level 137 mmol/L (136-145) Potassium Level 4.8 mmol/L (3.5-5.1) Chloride Level 107 mmol/L (98-107) Carbon Dioxide Level 24 mmol/L (21-32) Anion Gap 6 (6-14) Blood Urea Nitrogen 24 mg/dL (7-20) Creatinine 1.1 mg/dL (0.6-1.0) Estimated GFR (Cockcroft-Gault) 51.0 BUN/Creatinine Ratio 22 (6-20) Glucose Level 121 mg/dL (70-99) Calcium Level 8.8 mg/dL (8.5-10.1) Total Bilirubin 1.4 mg/dL (0.2-1.0) Aspartate Amino Transf (AST/SGOT) 49 U/L (15-37) Alanine Aminotransferase (ALT/SGPT) 78 U/L (14-59) Alkaline Phosphatase 108 U/L (46-116) Troponin I Quantitative < 0.017 ng/mL (0.000-0.055) MY-Mwd-P-Type Natriuretic Peptide 7866 pg/mL (0-124) Total Protein 5.8 g/dL (6.4-8.2) Albumin 2.8 g/dL (3.4-5.0) Albumin/Globulin Ratio 0.9 (1.0-1.7) Thyroid Stimulating Hormone (TSH) 1.970 uIU/mL (0.358-3.74) Urine Collection Type Unknown Urine Color Yellow Urine Clarity Clear Urine pH 7.0 (<5.0-8.0) Urine Specific [place] <=1.005 (1.000-1.030) Urine Protein Negative mg/dL (NEG-TRACE) Urine Glucose (UA) Negative mg/dL (NEG) Urine Ketones (Stick) Negative mg/dL (NEG) Urine Blood Negative (NEG) Urine Nitrite Negative (NEG) Urine Bilirubin Negative (NEG) Urine Urobilinogen Dipstick 0.2 mg/dL (0.2 mg/dL) Urine Leukocyte Esterase Negative (NEG) Urine RBC 0 /HPF (0-2) Urine WBC 0 /HPF (0-4) Urine Squamous Epithelial Cells Occ /LPF Urine Bacteria 0 /HPF (0-FEW) Urine Opiates Screen Neg (NEG) Urine Methadone Screen Neg (NEG) Urine Barbiturates Neg (NEG) Urine Phencyclidine Screen Neg (NEG) Urine Amphetamine/Methamphetamine Neg (NEG) Urine Benzodiazepines Screen Neg (NEG) Urine Cocaine Screen Neg (NEG) Urine Cannabinoids Screen Neg (NEG) Urine Ethyl Alcohol Neg (NEG) Laboratory Tests Test 03/10/20 08:09 03/10/20 12:36 White Blood Count 9.1 x10^3/uL (4.0-11.0) Red Blood Count 4.53 x10^6/uL (3.50-5.40) Hemoglobin 13.3 g/dL (12.0-15.5) Hematocrit 40.6 % (36.0-47.0) Mean Corpuscular Volume 90 fL (79-100) Mean Corpuscular Hemoglobin 29 pg (25-35) Mean Corpuscular Hemoglobin Concent 33 g/dL (31-37) Red Cell Distribution Width 14.2 % (11.5-14.5) Platelet Count 290 x10^3/uL (140-400) Neutrophils (%) (Auto) 80 % (31-73) Lymphocytes (%) (Auto) 9 % (24-48) Monocytes (%) (Auto) 8 % (0-9) Eosinophils (%) (Auto) 2 % (0-3) Basophils (%) (Auto) 1 % (0-3) Neutrophils # (Auto) 7.3 x10^3/uL (1.8-7.7) Lymphocytes # (Auto) 0.8 x10^3/uL (1.0-4.8) Monocytes # (Auto) 0.7 x10^3/uL (0.0-1.1) Eosinophils # (Auto) 0.2 x10^3/uL (0.0-0.7) Basophils # (Auto) 0.1 x10^3/uL (0.0-0.2) Sodium Level 137 mmol/L (136-145) Potassium Level 4.8 mmol/L (3.5-5.1) Chloride Level 107 mmol/L (98-107) Carbon Dioxide Level 24 mmol/L (21-32) Anion Gap 6 (6-14) Blood Urea Nitrogen 24 mg/dL (7-20) Creatinine 1.1 mg/dL (0.6-1.0) Estimated GFR (Cockcroft-Gault) 51.0 BUN/Creatinine Ratio 22 (6-20) Glucose Level 121 mg/dL (70-99) Calcium Level 8.8 mg/dL (8.5-10.1) Total Bilirubin 1.4 mg/dL (0.2-1.0) Aspartate Amino Transf (AST/SGOT) 49 U/L (15-37) Alanine Aminotransferase (ALT/SGPT) 78 U/L (14-59) Alkaline Phosphatase 108 U/L (46-116) Troponin I Quantitative < 0.017 ng/mL (0.000-0.055) KN-Aug-S-Type Natriuretic Peptide 7866 pg/mL (0-124) Total Protein 5.8 g/dL (6.4-8.2) Albumin 2.8 g/dL (3.4-5.0) Albumin/Globulin Ratio 0.9 (1.0-1.7) Thyroid Stimulating Hormone (TSH) 1.970 uIU/mL (0.358-3.74) Urine Collection Type Unknown Urine Color Yellow Urine Clarity Clear Urine pH 7.0 (<5.0-8.0) Urine Specific [place] <=1.005 (1.000-1.030) Urine Protein Negative mg/dL (NEG-TRACE) Urine Glucose (UA) Negative mg/dL (NEG) Urine Ketones (Stick) Negative mg/dL (NEG) Urine Blood Negative (NEG) Urine Nitrite Negative (NEG) Urine Bilirubin Negative (NEG) Urine Urobilinogen Dipstick 0.2 mg/dL (0.2 mg/dL) Urine Leukocyte Esterase Negative (NEG) Urine RBC 0 /HPF (0-2) Urine WBC 0 /HPF (0-4) Urine Squamous Epithelial Cells Occ /LPF Urine Bacteria 0 /HPF (0-FEW) Urine Opiates Screen Neg (NEG) Urine Methadone Screen Neg (NEG) Urine Barbiturates Neg (NEG) Urine Phencyclidine Screen Neg (NEG) Urine Amphetamine/Methamphetamine Neg (NEG) Urine Benzodiazepines Screen Neg (NEG) Urine Cocaine Screen Neg (NEG) Urine Cannabinoids Screen Neg (NEG) Urine Ethyl Alcohol Neg (NEG) Images Images Chest x-ray as above with cardiomegaly and pulmonary vascular congestion. Assessment/Plan Assessment/Plan 1. Congestive heart failure. Gradually increasing over the past 3 weeks. Patient denies any history of heart failure. At this time would continue diuresis which has improved her shortness of breath. Renal consult has been obtained for her kidney transplant. Will check an echocardiogram for LV function. 2. Chronic kidney disease. Status post renal transplant. Consult to renal. 3. Hypertension. Under better control. We will continue to monitor. 4. History of hyperlipidemia. Will check lab. 5. Status post left mastectomy. Thank you for allowing us to participate in the care of your patient. ELLY JIMENES MD Mar 10, 2020 13:43
[2020-03-10 14:14] VITALS: BP 141/60
--- NOTE | 2020-03-10 17:38 | EKG ---
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
[2020-03-10] MEDS: POTASSIUM CHLORIDE 20 MEQ TABLET.ER. PO SCH (17:48)
[2020-03-10 19:24] VITALS: BP 112/55
--- NOTE | 2020-03-10 19:35 | NUR ---
Assessment completed vss poc explained pt denied pain will resume care and continue to monitor pt.
[2020-03-10] MEDS ORDERED: TACROLIMUS 0.5 MG CAPSULE. PO SCH (21:00)
[2020-03-10] MEDS ORDERED: MAGNESIUM OXIDE 400 MG TABLET PO SCH (21:00)
[2020-03-10 23:42] VITALS: BP 150/74
[2020-03-11 03:00] VITALS: BP 179/84
[2020-03-11 05:56] LABS: CHOLESTEROL/HDL RATIO 2.9
[2020-03-11 05:57] LABS: ALBUMIN 2.6 g/dL (3.4-5.0); ALBUMIN/GLOBULIN RATIO 0.8 (1.0-1.7); CALCIUM 8.3 mg/dL (8.5-10.1); CREATININE 1.4 mg/dL (0.6-1.0); GFR 38.6; PHOSPHORUS 4.1 mg/dL (2.6-4.7); POTASSIUM 3.9 mmol/L (3.5-5.1); TOTAL BILIRUBIN 0.9 mg/dL (0.2-1.0); TOTAL PROTEIN 5.7 g/dL (6.4-8.2)
[2020-03-11 06:06] LABS: BASO # 0.1 x10^3/uL (0.0-0.2); BASO % 1 % (0-3); EOS # 0.3 x10^3/uL (0.0-0.7); EOS % 5 % (0-3); HEMATOCRIT 42.5 % (36.0-47.0); HEMOGLOBIN 13.8 g/dL (12.0-15.5); LYMPH # 1.4 x10^3/uL (1.0-4.8); LYMPH % 25 % (24-48); MEAN CORPUSCULAR HEMOGLOBIN 29 pg (25-35); MEAN CORPUSCULAR HGB CONC 33 g/dL (31-37); MEAN CORPUSCULAR VOLUME 90 fL (79-100); MONO # 0.7 x10^3/uL (0.0-1.1); MONO % 13 % (0-9); NEUT # 3.2 x10^3/uL (1.8-7.7); NEUT % 56 % (31-73); PLATELET COUNT 294 x10^3/uL (140-400); RED BLOOD COUNT 4.74 x10^6/uL (3.50-5.40); RED CELL DISTRIBUTION WIDTH 14.3 % (11.5-14.5); WHITE BLOOD COUNT 5.7 x10^3/uL (4.0-11.0)
[2020-03-11 07:00] VITALS: BP 150/85
[2020-03-11] MEDS: FUROSEMIDE 20 MG/2 ML VIAL. IVP SCH ×2 (08:57→15:23)
[2020-03-11] MEDS: POTASSIUM CHLORIDE 20 MEQ TABLET.ER. PO SCH (08:57)
[2020-03-11] MEDS: OMEGA-3 FATTY ACIDS/FISH OIL 1,000 MG CAPSULE. PO SCH (08:57)
[2020-03-11] MEDS: TACROLIMUS 0.5 MG CAPSULE. PO SCH (08:58)
[2020-03-11] MEDS: MYCOPHENOLATE ACID 180 MG TABLET.DR. PO SCH (08:58)
[2020-03-11] MEDS: METOPROLOL TART IMMED RELEASE 50 MG TABLET. PO SCH (08:58)
[2020-03-11] MEDS ORDERED: DHA PO SCH (09:00)
[2020-03-11] MEDS ORDERED: EPA PO SCH (09:00)
[2020-03-11] MEDS ORDERED: FISH OIL PO SCH (09:00)
[2020-03-11] MEDS ORDERED: OMEGA PO SCH (09:00)
--- NOTE | 2020-03-11 09:05 | RAD ---
EXAM: Abdomen sonogram. HISTORY: Transaminitis. TECHNIQUE: Sonographic imaging of the abdomen was performed. COMPARISON: None. FINDINGS: The liver is normal in size. No focal hepatic lesion is seen. The gallbladder is unremarkab le. The common bile duct is normal in caliber. The [place] kidneys are decreased in size and demonstra te echogenic parenchyma. There is a normal sized transplant kidney within the right lower quadrant. T here is no hydronephrosis. The pancreas and spleen are unremarkable. The aorta is normal in caliber. The inferior vena cava is patent. IMPRESSION: 1. Atrophic [place] kidneys with echogenic parenchyma consistent with medical renal disease. 2. Normal-appearing transplant kidney within the right lower quadrant. 3. No acute sonographic finding. Electronically signed by: Gladys Morris MD (03/11/2020 9:02 AM) [facility]
[2020-03-11] MEDS: ENOXAPARIN 40 MG/0.4 ML SYRINGE. SQ SCH (09:06)
--- NOTE | 2020-03-11 10:31 | PDOC ---
PROGRESS NOTES Date of Service: DATE: 03/11/20 TIME: 10:31 Chief Complaint Chief Complaint VTE Prophylaxis Ordered VTE Prophylaxis Devices: Yes VTE Pharmacological Prophylaxi: Yes Assessment/Plan Assessment/Plan Impression: New onset of congestive heart failure hx renal transplant Pulmonary edema, new onset Hypertension, urgency transaminitis ADMITTED cvc bed UDS Consult cardiology tsh echo consult nephrology iv lasix 20mg bid dvt prophylaxis low sodium intake 03-11 echo pending D/W rn History of Present Illness History of Present Illness Identification/Chief Complaint Chief Complaint seen in er with new onset chf, has been consuming lost of salty food given the 59 -year-old female past medical history of kidney transplant and hypertension who presents to the emergency room complaining of shortness of breath. This started about 3 weeks ago and initially was intermittent. She also had some associated bilateral leg swelling. primary care doctor started her on Lasix., has an appointment with cardiology in 3 weeks to be evaluated for possible congestive heart failure. // swelling in her legs have greatly improved., now mostly having shortness of breath that is worse if she gets up and moves. > 20 feet states is impossible to walk stairs due to shortness of breath. She ran out of Lasix 12-24 . // denies any cough, fever, runny nose, sore throat, abdominal pain, nausea, vomiting. Past Medical History Past Medical History Past Medical History Past Medical History Past Medical History: Cancer, High Cholesterol, Hypertension, Renal Disease Additional Past Medical Histor: RT KIDNEY TRANSPLANT 2013 research [facility] Past Surgical History: Appendectomy, Other Additional Past Surgical Histo: LT MASTECTOMY 2005, RT KIDNEY TRANSPLANT 2012 Smoking Status: Never Smoker Alcohol Use: Occasionally Cardiovascular: HTN Pulmonary: No pertinent hx GI: No pertinent hx Heme/Onc: No pertinent hx Hepatobiliary: No pertinent hx Psych: No pertinent hx Renal/: Chronic renal insuff Past Surgical History Past Surgical History renal transplant 2013 Family History Family History: Hypertension, Kidney Disease Social History Smoke: Quit ALCOHOL: none Drugs: None Current Problem List Problem List Problems Medical Problems: (1) Hypertension Vitals Vitals Vital Signs Date Time Temp Pulse Resp B/P (MAP) Pulse Ox O2 Delivery O2 Flow Rate FiO2 03/11/20 08:58 69 150/85 03/11/20 08:00 Room Air 03/11/20 07:00 97.7 16 94 97.7 Physical Exam Physical Exam General: Awake, alert, NAD. Well Nourished, well hydrated. Cooperative HEENT: Atraumatic, EOMI, PERRL, airway patent, moist oral mucosa Neck: Supple, trachea midline Respiratory: CTA bilaterally, normal effort, diffuse crackles CV: RRR, no murmur, cap refill <2 GI: Soft, nondistended, nontender, no masses MSK: No obvious deformities Skin: Warm, dry, intact Neuro: A&O x3, speech NL, sensory and motor grossly intact, no focal deficits General: Alert, Oriented X3, Cooperative, No acute distress Lungs: Clear to auscultation, Normal air movement Heart: RRR, no thrills Breasts: Not examined Abdomen: Normal bowel sounds, Soft Rectal Exam: not examined PELVIC: Examination not indicated Extremities: No cyanosis Neuro: Normal speech, Strength at 5/5 X4 ext, Sensation intact, Cranial nerves 3-12 NL Psych/Mental Status: Mental status NL, Mood NL General: Alert, Oriented X3, Cooperative, No acute distress Heart: Regular rate, Normal S1, No murmurs Lungs: Clear Abdomen: Normal bowel sounds, Soft Extremities: No cyanosis Labs LABS Laboratory Tests Test 03/10/20 12:36 03/11/20 05:00 Urine Collection Type Unknown Urine Color Yellow Urine Clarity Clear Urine pH 7.0 (<5.0-8.0) Urine Specific [place] <=1.005 (1.000-1.030) Urine Protein Negative mg/dL (NEG-TRACE) Urine Glucose (UA) Negative mg/dL (NEG) Urine Ketones (Stick) Negative mg/dL (NEG) Urine Blood Negative (NEG) Urine Nitrite Negative (NEG) Urine Bilirubin Negative (NEG) Urine Urobilinogen Dipstick 0.2 mg/dL (0.2 mg/dL) Urine Leukocyte Esterase Negative (NEG) Urine RBC 0 /HPF (0-2) Urine WBC 0 /HPF (0-4) Urine Squamous Epithelial Cells Occ /LPF Urine Bacteria 0 /HPF (0-FEW) Urine Opiates Screen Neg (NEG) Urine Methadone Screen Neg (NEG) Urine Barbiturates Neg (NEG) Urine Phencyclidine Screen Neg (NEG) Urine Amphetamine/Methamphetamine Neg (NEG) Urine Benzodiazepines Screen Neg (NEG) Urine Cocaine Screen Neg (NEG) Urine Cannabinoids Screen Neg (NEG) Urine Ethyl Alcohol Neg (NEG) White Blood Count 5.7 x10^3/uL (4.0-11.0) Red Blood Count 4.74 x10^6/uL (3.50-5.40) Hemoglobin 13.8 g/dL (12.0-15.5) Hematocrit 42.5 % (36.0-47.0) Mean Corpuscular Volume 90 fL (79-100) Mean Corpuscular Hemoglobin 29 pg (25-35) Mean Corpuscular Hemoglobin Concent 33 g/dL (31-37) Red Cell Distribution Width 14.3 % (11.5-14.5) Platelet Count 294 x10^3/uL (140-400) Neutrophils (%) (Auto) 56 % (31-73) Lymphocytes (%) (Auto) 25 % (24-48) Monocytes (%) (Auto) 13 % (0-9) Eosinophils (%) (Auto) 5 % (0-3) Basophils (%) (Auto) 1 % (0-3) Neutrophils # (Auto) 3.2 x10^3/uL (1.8-7.7) Lymphocytes # (Auto) 1.4 x10^3/uL (1.0-4.8) Monocytes # (Auto) 0.7 x10^3/uL (0.0-1.1) Eosinophils # (Auto) 0.3 x10^3/uL (0.0-0.7) Basophils # (Auto) 0.1 x10^3/uL (0.0-0.2) Sodium Level 144 mmol/L (136-145) Potassium Level 3.9 mmol/L (3.5-5.1) Chloride Level 108 mmol/L (98-107) Carbon Dioxide Level 29 mmol/L (21-32) Anion Gap 7 (6-14) Blood Urea Nitrogen 28 mg/dL (7-20) Creatinine 1.4 mg/dL (0.6-1.0) Estimated GFR (Cockcroft-Gault) 38.6 BUN/Creatinine Ratio 20 (6-20) Glucose Level 88 mg/dL (70-99) Calcium Level 8.3 mg/dL (8.5-10.1) Phosphorus Level 4.1 mg/dL (2.6-4.7) Magnesium Level 2.0 mg/dL (1.8-2.4) Total Bilirubin 0.9 mg/dL (0.2-1.0) Aspartate Amino Transf (AST/SGOT) 38 U/L (15-37) Alanine Aminotransferase (ALT/SGPT) 65 U/L (14-59) Alkaline Phosphatase 99 U/L (46-116) Total Protein 5.7 g/dL (6.4-8.2) Albumin 2.6 g/dL (3.4-5.0) Albumin/Globulin Ratio 0.8 (1.0-1.7) Triglycerides Level 100 mg/dL (0-150) Cholesterol Level 268 mg/dL (0-200) LDL Cholesterol, Calculated 156 mg/dL (0-100) VLDL Cholesterol, Calculated 20 mg/dL (0-40) Non-HDL Cholesterol Calculated 176 mg/dL (0-129) HDL Cholesterol 92 mg/dL (40-60) Cholesterol/HDL Ratio 2.9 Assessment and Plan Assessmemt and Plan Problems Medical Problems: (1) Hypertension Status: Acute (2) New onset of congestive heart failure Status: Acute (3) Pulmonary edema Status: Acute Comment Review of Relevant I have reviewed the following items cecilia (where applicable) has been applied. Labs Laboratory Tests Test 03/10/20 08:09 03/10/20 12:36 03/11/20 05:00 White Blood Count 9.1 x10^3/uL (4.0-11.0) 5.7 x10^3/uL (4.0-11.0) Red Blood Count 4.53 x10^6/uL (3.50-5.40) 4.74 x10^6/uL (3.50-5.40) Hemoglobin 13.3 g/dL (12.0-15.5) 13.8 g/dL (12.0-15.5) Hematocrit 40.6 % (36.0-47.0) 42.5 % (36.0-47.0) Mean Corpuscular Volume 90 fL (79-100) 90 fL (79-100) Mean Corpuscular Hemoglobin 29 pg (25-35) 29 pg (25-35) Mean Corpuscular Hemoglobin Concent 33 g/dL (31-37) 33 g/dL (31-37) Red Cell Distribution Width 14.2 % (11.5-14.5) 14.3 % (11.5-14.5) Platelet Count 290 x10^3/uL (140-400) 294 x10^3/uL (140-400) Neutrophils (%) (Auto) 80 % (31-73) 56 % (31-73) Lymphocytes (%) (Auto) 9 % (24-48) 25 % (24-48) Monocytes (%) (Auto) 8 % (0-9) 13 % (0-9) Eosinophils (%) (Auto) 2 % (0-3) 5 % (0-3) Basophils (%) (Auto) 1 % (0-3) 1 % (0-3) Neutrophils # (Auto) 7.3 x10^3/uL (1.8-7.7) 3.2 x10^3/uL (1.8-7.7) Lymphocytes # (Auto) 0.8 x10^3/uL (1.0-4.8) 1.4 x10^3/uL (1.0-4.8) Monocytes # (Auto) 0.7 x10^3/uL (0.0-1.1) 0.7 x10^3/uL (0.0-1.1) Eosinophils # (Auto) 0.2 x10^3/uL (0.0-0.7) 0.3 x10^3/uL (0.0-0.7) Basophils # (Auto) 0.1 x10^3/uL (0.0-0.2) 0.1 x10^3/uL (0.0-0.2) Sodium Level 137 mmol/L (136-145) 144 mmol/L (136-145) Potassium Level 4.8 mmol/L (3.5-5.1) 3.9 mmol/L (3.5-5.1) Chloride Level 107 mmol/L (98-107) 108 mmol/L (98-107) Carbon Dioxide Level 24 mmol/L (21-32) 29 mmol/L (21-32) Anion Gap 6 (6-14) 7 (6-14) Blood Urea Nitrogen 24 mg/dL (7-20) 28 mg/dL (7-20) Creatinine 1.1 mg/dL (0.6-1.0) 1.4 mg/dL (0.6-1.0) Estimated GFR (Cockcroft-Gault) 51.0 38.6 BUN/Creatinine Ratio 22 (6-20) 20 (6-20) Glucose Level 121 mg/dL (70-99) 88 mg/dL (70-99) Calcium Level 8.8 mg/dL (8.5-10.1) 8.3 mg/dL (8.5-10.1) Total Bilirubin 1.4 mg/dL (0.2-1.0) 0.9 mg/dL (0.2-1.0) Aspartate Amino Transf (AST/SGOT) 49 U/L (15-37) 38 U/L (15-37) Alanine Aminotransferase (ALT/SGPT) 78 U/L (14-59) 65 U/L (14-59) Alkaline Phosphatase 108 U/L (46-116) 99 U/L (46-116) Troponin I Quantitative < 0.017 ng/mL (0.000-0.055) OX-Tls-T-Type Natriuretic Peptide 7866 pg/mL (0-124) Total Protein 5.8 g/dL (6.4-8.2) 5.7 g/dL (6.4-8.2) Albumin 2.8 g/dL (3.4-5.0) 2.6 g/dL (3.4-5.0) Albumin/Globulin Ratio 0.9 (1.0-1.7) 0.8 (1.0-1.7) Thyroid Stimulating Hormone (TSH) 1.970 uIU/mL (0.358-3.74) Urine Collection Type Unknown Urine Color Yellow Urine Clarity Clear Urine pH 7.0 (<5.0-8.0) Urine Specific [place] <=1.005 (1.000-1.030) Urine Protein Negative mg/dL (NEG-TRACE) Urine Glucose (UA) Negative mg/dL (NEG) Urine Ketones (Stick) Negative mg/dL (NEG) Urine Blood Negative (NEG) Urine Nitrite Negative (NEG) Urine Bilirubin Negative (NEG) Urine Urobilinogen Dipstick 0.2 mg/dL (0.2 mg/dL) Urine Leukocyte Esterase Negative (NEG) Urine RBC 0 /HPF (0-2) Urine WBC 0 /HPF (0-4) Urine Squamous Epithelial Cells Occ /LPF Urine Bacteria 0 /HPF (0-FEW) Urine Opiates Screen Neg (NEG) Urine Methadone Screen Neg (NEG) Urine Barbiturates Neg (NEG) Urine Phencyclidine Screen Neg (NEG) Urine Amphetamine/Methamphetamine Neg (NEG) Urine Benzodiazepines Screen Neg (NEG) Urine Cocaine Screen Neg (NEG) Urine Cannabinoids Screen Neg (NEG) Urine Ethyl Alcohol Neg (NEG) Phosphorus Level 4.1 mg/dL (2.6-4.7) Magnesium Level 2.0 mg/dL (1.8-2.4) Triglycerides Level 100 mg/dL (0-150) Cholesterol Level 268 mg/dL (0-200) LDL Cholesterol, Calculated 156 mg/dL (0-100) VLDL Cholesterol, Calculated 20 mg/dL (0-40) Non-HDL Cholesterol Calculated 176 mg/dL (0-129) HDL Cholesterol 92 mg/dL (40-60) Cholesterol/HDL Ratio 2.9 Laboratory Tests Test 03/10/20 12:36 03/11/20 05:00 Urine Collection Type Unknown Urine Color Yellow Urine Clarity Clear Urine pH 7.0 (<5.0-8.0) Urine Specific [place] <=1.005 (1.000-1.030) Urine Protein Negative mg/dL (NEG-TRACE) Urine Glucose (UA) Negative mg/dL (NEG) Urine Ketones (Stick) Negative mg/dL (NEG) Urine Blood Negative (NEG) Urine Nitrite Negative (NEG) Urine Bilirubin Negative (NEG) Urine Urobilinogen Dipstick 0.2 mg/dL (0.2 mg/dL) Urine Leukocyte Esterase Negative (NEG) Urine RBC 0 /HPF (0-2) Urine WBC 0 /HPF (0-4) Urine Squamous Epithelial Cells Occ /LPF Urine Bacteria 0 /HPF (0-FEW) Urine Opiates Screen Neg (NEG) Urine Methadone Screen Neg (NEG) Urine Barbiturates Neg (NEG) Urine Phencyclidine Screen Neg (NEG) Urine Amphetamine/Methamphetamine Neg (NEG) Urine Benzodiazepines Screen Neg (NEG) Urine Cocaine Screen Neg (NEG) Urine Cannabinoids Screen Neg (NEG) Urine Ethyl Alcohol Neg (NEG) White Blood Count 5.7 x10^3/uL (4.0-11.0) Red Blood Count 4.74 x10^6/uL (3.50-5.40) Hemoglobin 13.8 g/dL (12.0-15.5) Hematocrit 42.5 % (36.0-47.0) Mean Corpuscular Volume 90 fL (79-100) Mean Corpuscular Hemoglobin 29 pg (25-35) Mean Corpuscular Hemoglobin Concent 33 g/dL (31-37) Red Cell Distribution Width 14.3 % (11.5-14.5) Platelet Count 294 x10^3/uL (140-400) Neutrophils (%) (Auto) 56 % (31-73) Lymphocytes (%) (Auto) 25 % (24-48) Monocytes (%) (Auto) 13 % (0-9) Eosinophils (%) (Auto) 5 % (0-3) Basophils (%) (Auto) 1 % (0-3) Neutrophils # (Auto) 3.2 x10^3/uL (1.8-7.7) Lymphocytes # (Auto) 1.4 x10^3/uL (1.0-4.8) Monocytes # (Auto) 0.7 x10^3/uL (0.0-1.1) Eosinophils # (Auto) 0.3 x10^3/uL (0.0-0.7) Basophils # (Auto) 0.1 x10^3/uL (0.0-0.2) Sodium Level 144 mmol/L (136-145) Potassium Level 3.9 mmol/L (3.5-5.1) Chloride Level 108 mmol/L (98-107) Carbon Dioxide Level 29 mmol/L (21-32) Anion Gap 7 (6-14) Blood Urea Nitrogen 28 mg/dL (7-20) Creatinine 1.4 mg/dL (0.6-1.0) Estimated GFR (Cockcroft-Gault) 38.6 BUN/Creatinine Ratio 20 (6-20) Glucose Level 88 mg/dL (70-99) Calcium Level 8.3 mg/dL (8.5-10.1) Phosphorus Level 4.1 mg/dL (2.6-4.7) Magnesium Level 2.0 mg/dL (1.8-2.4) Total Bilirubin 0.9 mg/dL (0.2-1.0) Aspartate Amino Transf (AST/SGOT) 38 U/L (15-37) Alanine Aminotransferase (ALT/SGPT) 65 U/L (14-59) Alkaline Phosphatase 99 U/L (46-116) Total Protein 5.7 g/dL (6.4-8.2) Albumin 2.6 g/dL (3.4-5.0) Albumin/Globulin Ratio 0.8 (1.0-1.7) Triglycerides Level 100 mg/dL (0-150) Cholesterol Level 268 mg/dL (0-200) LDL Cholesterol, Calculated 156 mg/dL (0-100) VLDL Cholesterol, Calculated 20 mg/dL (0-40) Non-HDL Cholesterol Calculated 176 mg/dL (0-129) HDL Cholesterol 92 mg/dL (40-60) Cholesterol/HDL Ratio 2.9 Medications Current Medications Furosemide (Lasix) 40 mg 1X ONCE IVP Last administered on 03/10/20at 09:10; St art 03/10/20 at 09:00; Stop 03/10/20 at 09:06; Status DC Labetalol HCl (Normodyne Iv Push) 10 mg 1X ONCE IVP Last administered on 03/10/20at 09:09; Start 03/10/20 at 09:00; Stop 03/10/20 at 09:06; Status DC Sodium Chloride (Normal Saline Flush) 3 ml QSHIFT PRN IV AFTER MEDS AND BLOOD DRAWS; Start 03/10/20 at 10:00 Ondansetron HCl (Zofran) 4 mg PRN Q4HRS PRN IV NAUSEA/VOMITING; Start 03/10/20 at 10:00 Zolpidem Tartrate (Ambien) 5 mg PRN QHS PRN PO INSOMNIA; Start 03/10/20 at 10:00 Acetaminophen (Tylenol) 650 mg PRN Q4HRS PRN PO TEMP OVER 100.4F OR MILD PAIN; Start 03/10/20 at 10:00; Status UNV Al Hydroxide/Mg Hydroxide (Mylanta Plus Xs) 30 ml PRN DAILY PRN PO HEARTBURN / GAS; Start 03/10/20 at 10:00 Sodium Monofluorophosphate (Fleet Adult) 133 ml PRN DAILY PRN [place] CONSTIPATION; Start 03/10/20 at 10:00; Stop 03/10/20 at 10:46; Status DC Docusate Sodium (Colace) 100 mg PRN BID PRN PO HARD STOOLS; Start 03/10/20 at 10:00 Albuterol Sulfate (Ventolin Neb Soln) 2.5 mg PRN Q4HRS PRN NEB SHORTNESS OF BREATH; Start 03/10/20 at 10:00 Guaifenesin (Robitussin) 200 mg PRN Q4HRS PRN PO COUGH; Start 03/10/20 at 10:00 Enoxaparin Sodium (Lovenox 40mg Syringe) 40 mg Q24H SQ Last administered on 03/11/20at 09:06; Start 03/10/20 at 11:00 Labetalol HCl (Normodyne Iv Push) 20 mg PRN Q2HR PRN IVP HYPERTENSION; Start 03/10/20 at 10:15 Furosemide (Lasix) 20 mg [id number] IVP Last administered on 03/11/20at 08:57; Start 03/10/20 at 10:30 Magnesium Sulfate 50 ml @ 25 mls/hr PRN DAILY PRN IV for Mag < 1.7 on am labs; Start 03/10/20 at 10:45 Fish Oil (Fish Oil) 1,000 mg DAILY PO Last administered on 03/11/20at 08:57; Start 03/10/20 at 12:00 Potassium Chloride (Klor-Con) 20 meq BIDWMEALS PO Last administered on 03/11/20at 08:57; Start 03/10/20 at 17:00 Tacrolimus (Prograf) 1 mg HS PO Last administered on 03/10/20at 20:52; Start 03/10/20 at 21:00 Tacrolimus (Prograf) 1.5 mg DAILY PO Last administered on 03/11/20at 08:58; Start 03/10/20 at 12:00 Non-Formulary Medication (Albuterol Sulfate (Proair Respiclick)) 2 puff PRN Q4- 6HRS PRN IH shortness of breath; Start 03/10/20 at 12:00; Stop 03/10/20 at 11:58; Status DC Magnesium Oxide (Magnesium Oxide) 400 mg HS PO Last administered on 03/10/20at 2 0:51; Start 03/10/20 at 21:00 Metoprolol Tartrate (Lopressor) 100 mg BID PO Last administered on 03/11/20at 08:58; Start 03/10/20 at 12:00 Mycophenolate Sodium (Myfortic) 360 mg BID PO Last administered on 03/11/20at 08:58; Start 03/10/20 at 12:00 Non-Formulary Medication ([place]-3/Dha/Epa/ Fish Oil ([place] 3 500 Softgel)) 1 cap DAILY PO ; Start 03/11/20 at 09:00; Status UNV Ondansetron HCl (Zofran Odt) 4 mg PRN Q6HRS PRN PO NAUSEA/VOMITING; Start 03/10/20 at 12:00 Active Scripts Active Ondansetron Hcl 4 Mg Tablet 1 Tab PO PRN Q6HRS PRN 3 Days Reported Mag-Oxide (Magnesium Oxide) 200 Mg Tablet 1 Tab PO HS 30 Days [place] 3 500 Softgel ([place]-3/Dha/Epa/Fish Oil) 1 Each Capsule 1 Cap PO DAILY 30 Days Fish Oil 1,000 Mg Softgel ([place]-3 Fatty Acids/Fish Oil) 1 Each Capsule 1 Cap PO DAILY 30 Days Potassium Chloride (Potassium Chloride) 20 Meq Tablet.er 20 Meq PO BID Proair Respiclick (Albuterol Sulfate) 90 Mcg Aer.pow.ba 2 Puff IH PRN Q4-6HRS PRN Mycophenolic Acid (Mycophenolate Sodium) 360 Mg Tablet.dr 360 Mg PO BID Metoprolol Tartrate 100 Mg Tablet 1 Tab PO BID Tacrolimus 0.5 Mg Capsule 1 Mg PO HS Tacrolimus 0.5 Mg Capsule 1.5 Mg PO DAILY Vitals/I & O Vital Sign - Last 24 Hours 03/10/20 03/10/20 03/10/20 03/10/20 14:14 19:24 19:35 20:51 Temp 97.8 97.9 97.8 97.9 Pulse 88 84 84 Resp 18 18 B/P (MAP) 141/60 (87) 112/55 (74) 112/55 Pulse Ox 94 95 O2 Delivery Room Air Room Air Room Air 03/10/20 03/11/20 03/11/20 03/11/20 23:42 03:00 07:00 08:00 Temp 98.0 98.0 97.7 98.0 98.0 97.7 Pulse 66 70 69 Resp 18 16 16 B/P (MAP) 150/74 (99) 179/84 (115) 150/85 (106) Pulse Ox 96 93 94 O2 Delivery Room Air Room Air Room Air Room Air 03/11/20 08:58 Pulse 69 B/P (MAP) 150/85 Intake and Output 03/10/20 03/10/20 03/11/20 15:00 23:00 07:00 Intake Total 960 ml 500 ml Output Total 1750 ml 400 ml Balance -1750 ml 560 ml 500 ml Justicifation of Admission Dx: Justifications for Admission: Justification of Admission Dx: N/A JACK SYLVESTER MD Mar 11, 2020 10:31
[2020-03-11 11:00] VITALS: BP 108/55
[2020-03-11] MEDS ORDERED: FURO-69 PO (13:28)
[2020-03-11 15:00] VITALS: BP 132/69
--- NOTE | 2020-03-11 15:07 | PDOC ---
PROGRESS NOTES Date of Service DATE: 03/11/20 TIME: 15:04 Subjective Subjective Patient seen and examined Objective Objective Vital Signs Date Time Temp Pulse Resp B/P (MAP) Pulse Ox O2 Delivery O2 Flow Rate FiO2 03/11/20 11:00 97.7 69 16 108/55 (72) 92 Room Air 97.7 Intake and Output 03/11/20 07:00 Intake Total 1460 ml Output Total 2150 ml Balance -690 ml Intake Oral 1460 ml Output Urine Total 2150 ml # Voids 3 Physical Exam Abdomen: Normal bowel sounds Heart: Regular rate General: No acute distress Lungs: Other (Mildly decreased breath sounds) Assessment Assessment Problems Medical Problems: (1) Hypertension Status: Acute (2) New onset of congestive heart failure Status: Acute (3) Pulmonary edema Status: Acute 1. Congestive heart failure. Gradually increasing over the past 3 weeks. The patient is feeling better today. We will continue on diuresis. Patient initially thought she had an echo earlier today but apparently it was a renal ultrasound. We will check an echo tomorrow morning or as an outpatient. 2. Chronic kidney disease. Status post renal transplant. Renal evaluation in progress. 3. Hypertension. Under better control. We will continue to monitor. 4. History of hyperlipidemia. Lab this morning showed an elevated LDL at 156, HDL of 92 and triglycerides 100. Would consider starting statins unless there is a contraindication from renal viewpoint. 5. Status post left mastectomy. Comment Review of Relevant I have reviewed the following items cecilia (where applicable) has been applied. Labs Laboratory Tests Test 03/10/20 08:09 03/10/20 12:36 03/11/20 05:00 White Blood Count 9.1 x10^3/uL (4.0-11.0) 5.7 x10^3/uL (4.0-11.0) Red Blood Count 4.53 x10^6/uL (3.50-5.40) 4.74 x10^6/uL (3.50-5.40) Hemoglobin 13.3 g/dL (12.0-15.5) 13.8 g/dL (12.0-15.5) Hematocrit 40.6 % (36.0-47.0) 42.5 % (36.0-47.0) Mean Corpuscular Volume 90 fL (79-100) 90 fL (79-100) Mean Corpuscular Hemoglobin 29 pg (25-35) 29 pg (25-35) Mean Corpuscular Hemoglobin Concent 33 g/dL (31-37) 33 g/dL (31-37) Red Cell Distribution Width 14.2 % (11.5-14.5) 14.3 % (11.5-14.5) Platelet Count 290 x10^3/uL (140-400) 294 x10^3/uL (140-400) Neutrophils (%) (Auto) 80 % (31-73) 56 % (31-73) Lymphocytes (%) (Auto) 9 % (24-48) 25 % (24-48) Monocytes (%) (Auto) 8 % (0-9) 13 % (0-9) Eosinophils (%) (Auto) 2 % (0-3) 5 % (0-3) Basophils (%) (Auto) 1 % (0-3) 1 % (0-3) Neutrophils # (Auto) 7.3 x10^3/uL (1.8-7.7) 3.2 x10^3/uL (1.8-7.7) Lymphocytes # (Auto) 0.8 x10^3/uL (1.0-4.8) 1.4 x10^3/uL (1.0-4.8) Monocytes # (Auto) 0.7 x10^3/uL (0.0-1.1) 0.7 x10^3/uL (0.0-1.1) Eosinophils # (Auto) 0.2 x10^3/uL (0.0-0.7) 0.3 x10^3/uL (0.0-0.7) Basophils # (Auto) 0.1 x10^3/uL (0.0-0.2) 0.1 x10^3/uL (0.0-0.2) Sodium Level 137 mmol/L (136-145) 144 mmol/L (136-145) Potassium Level 4.8 mmol/L (3.5-5.1) 3.9 mmol/L (3.5-5.1) Chloride Level 107 mmol/L (98-107) 108 mmol/L (98-107) Carbon Dioxide Level 24 mmol/L (21-32) 29 mmol/L (21-32) Anion Gap 6 (6-14) 7 (6-14) Blood Urea Nitrogen 24 mg/dL (7-20) 28 mg/dL (7-20) Creatinine 1.1 mg/dL (0.6-1.0) 1.4 mg/dL (0.6-1.0) Estimated GFR (Cockcroft-Gault) 51.0 38.6 BUN/Creatinine Ratio 22 (6-20) 20 (6-20) Glucose Level 121 mg/dL (70-99) 88 mg/dL (70-99) Calcium Level 8.8 mg/dL (8.5-10.1) 8.3 mg/dL (8.5-10.1) Total Bilirubin 1.4 mg/dL (0.2-1.0) 0.9 mg/dL (0.2-1.0) Aspartate Amino Transf (AST/SGOT) 49 U/L (15-37) 38 U/L (15-37) Alanine Aminotransferase (ALT/SGPT) 78 U/L (14-59) 65 U/L (14-59) Alkaline Phosphatase 108 U/L (46-116) 99 U/L (46-116) Troponin I Quantitative < 0.017 ng/mL (0.000-0.055) YD-Lpm-H-Type Natriuretic Peptide 7866 pg/mL (0-124) Total Protein 5.8 g/dL (6.4-8.2) 5.7 g/dL (6.4-8.2) Albumin 2.8 g/dL (3.4-5.0) 2.6 g/dL (3.4-5.0) Albumin/Globulin Ratio 0.9 (1.0-1.7) 0.8 (1.0-1.7) Thyroid Stimulating Hormone (TSH) 1.970 uIU/mL (0.358-3.74) Urine Collection Type Unknown Urine Color Yellow Urine Clarity Clear Urine pH 7.0 (<5.0-8.0) Urine Specific [place] <=1.005 (1.000-1.030) Urine Protein Negative mg/dL (NEG-TRACE) Urine Glucose (UA) Negative mg/dL (NEG) Urine Ketones (Stick) Negative mg/dL (NEG) Urine Blood Negative (NEG) Urine Nitrite Negative (NEG) Urine Bilirubin Negative (NEG) Urine Urobilinogen Dipstick 0.2 mg/dL (0.2 mg/dL) Urine Leukocyte Esterase Negative (NEG) Urine RBC 0 /HPF (0-2) Urine WBC 0 /HPF (0-4) Urine Squamous Epithelial Cells Occ /LPF Urine Bacteria 0 /HPF (0-FEW) Urine Opiates Screen Neg (NEG) Urine Methadone Screen Neg (NEG) Urine Barbiturates Neg (NEG) Urine Phencyclidine Screen Neg (NEG) Urine Amphetamine/Methamphetamine Neg (NEG) Urine Benzodiazepines Screen Neg (NEG) Urine Cocaine Screen Neg (NEG) Urine Cannabinoids Screen Neg (NEG) Urine Ethyl Alcohol Neg (NEG) Phosphorus Level 4.1 mg/dL (2.6-4.7) Magnesium Level 2.0 mg/dL (1.8-2.4) Triglycerides Level 100 mg/dL (0-150) Cholesterol Level 268 mg/dL (0-200) LDL Cholesterol, Calculated 156 mg/dL (0-100) VLDL Cholesterol, Calculated 20 mg/dL (0-40) Non-HDL Cholesterol Calculated 176 mg/dL (0-129) HDL Cholesterol 92 mg/dL (40-60) Cholesterol/HDL Ratio 2.9 Laboratory Tests Test 03/11/20 05:00 White Blood Count 5.7 x10^3/uL (4.0-11.0) Red Blood Count 4.74 x10^6/uL (3.50-5.40) Hemoglobin 13.8 g/dL (12.0-15.5) Hematocrit 42.5 % (36.0-47.0) Mean Corpuscular Volume 90 fL (79-100) Mean Corpuscular Hemoglobin 29 pg (25-35) Mean Corpuscular Hemoglobin Concent 33 g/dL (31-37) Red Cell Distribution Width 14.3 % (11.5-14.5) Platelet Count 294 x10^3/uL (140-400) Neutrophils (%) (Auto) 56 % (31-73) Lymphocytes (%) (Auto) 25 % (24-48) Monocytes (%) (Auto) 13 % (0-9) Eosinophils (%) (Auto) 5 % (0-3) Basophils (%) (Auto) 1 % (0-3) Neutrophils # (Auto) 3.2 x10^3/uL (1.8-7.7) Lymphocytes # (Auto) 1.4 x10^3/uL (1.0-4.8) Monocytes # (Auto) 0.7 x10^3/uL (0.0-1.1) Eosinophils # (Auto) 0.3 x10^3/uL (0.0-0.7) Basophils # (Auto) 0.1 x10^3/uL (0.0-0.2) Sodium Level 144 mmol/L (136-145) Potassium Level 3.9 mmol/L (3.5-5.1) Chloride Level 108 mmol/L (98-107) Carbon Dioxide Level 29 mmol/L (21-32) Anion Gap 7 (6-14) Blood Urea Nitrogen 28 mg/dL (7-20) Creatinine 1.4 mg/dL (0.6-1.0) Estimated GFR (Cockcroft-Gault) 38.6 BUN/Creatinine Ratio 20 (6-20) Glucose Level 88 mg/dL (70-99) Calcium Level 8.3 mg/dL (8.5-10.1) Phosphorus Level 4.1 mg/dL (2.6-4.7) Magnesium Level 2.0 mg/dL (1.8-2.4) Total Bilirubin 0.9 mg/dL (0.2-1.0) Aspartate Amino Transf (AST/SGOT) 38 U/L (15-37) Alanine Aminotransferase (ALT/SGPT) 65 U/L (14-59) Alkaline Phosphatase 99 U/L (46-116) Total Protein 5.7 g/dL (6.4-8.2) Albumin 2.6 g/dL (3.4-5.0) Albumin/Globulin Ratio 0.8 (1.0-1.7) Triglycerides Level 100 mg/dL (0-150) Cholesterol Level 268 mg/dL (0-200) LDL Cholesterol, Calculated 156 mg/dL (0-100) VLDL Cholesterol, Calculated 20 mg/dL (0-40) Non-HDL Cholesterol Calculated 176 mg/dL (0-129) HDL Cholesterol 92 mg/dL (40-60) Cholesterol/HDL Ratio 2.9 Medications Current Medications Furosemide (Lasix) 40 mg 1X ONCE IVP Last administered on 03/10/20at 09:10; Start 03/10/20 at 09:00; Stop 03/10/20 at 09:06; Status DC Labetalol HCl (Normodyne Iv Push) 10 mg 1X ONCE IVP Last administered on 03/10/20at 09:09; Start 03/10/20 at 09:00; Stop 03/10/20 at 09:06; Status DC Sodium Chloride (Normal Saline Flush) 3 ml QSHIFT PRN IV AFTER MEDS AND BLOOD DRAWS; Start 03/10/20 at 10:00 Ondansetron HCl (Zofran) 4 mg PRN Q4HRS PRN IV NAUSEA/VOMITING; Start 03/10/20 at 10:00 Zolpidem Tartrate (Ambien) 5 mg PRN QHS PRN PO INSOMNIA; Start 03/10/20 at 10:00 Acetaminophen (Tylenol) 650 mg PRN Q4HRS PRN PO TEMP OVER 100.4F OR MILD PAIN; Start 03/10/20 at 10:00; Status UNV Al Hydroxide/Mg Hydroxide (Mylanta Plus Xs) 30 ml PRN DAILY PRN PO HEARTBURN / GAS; Start 03/10/20 at 10:00 Sodium Monofluorophosphate (Fleet Adult) 133 ml PRN DAILY PRN OK CONSTIPATION; Start 03/10/20 at 10:00; Stop 03/10/20 at 10:46; Status DC Docusate Sodium (Colace) 100 mg PRN BID PRN PO HARD STOOLS; Start 03/10/20 at 10:00 Albuterol Sulfate (Ventolin Neb Soln) 2.5 mg PRN Q4HRS PRN NEB SHORTNESS OF BREATH; Start 03/10/20 at 10:00 Guaifenesin (Robitussin) 200 mg PRN Q4HRS PRN PO COUGH; Start 03/10/20 at 10:00 Enoxaparin Sodium (Lovenox 40mg Syringe) 40 mg Q24H SQ Last administered on 03/11/20at 09:06; Start 03/10/20 at 11:00 Labetalol HCl (Normodyne Iv Push) 20 mg PRN Q2HR PRN IVP HYPERTENSION; Start at 10:15 Furosemide (Lasix) 20 mg [id number] IVP Last administered on 03/11/20at 08:57; Start 03/10/20 at 10:30 Magnesium Sulfate 50 ml @ 25 mls/hr PRN DAILY PRN IV for Mag < 1.7 on am labs; Start 03/10/20 at 10:45 Fish Oil (Fish Oil) 1,000 mg DAILY PO Last administered on 03/11/20at 08:57; Start 03/10/20 at 12:00 Potassium Chloride (Klor-Con) 20 meq BIDWMEALS PO Last administered on 03/11/20at 08:57; Start 03/10/20 at 17:00 Tacrolimus (Prograf) 1 mg HS PO Last administered on 03/10/20at 20:52; Start 03/10/20 at 21:00 Tacrolimus (Prograf) 1.5 mg DAILY PO Last administered on 03/11/20at 08:58; Start 03/10/20 at 12:00 Non-Formulary Medication (Albuterol Sulfate (Proair Respiclick)) 2 puff PRN Q4- 6HRS PRN IH shortness of breath; Start 03/10/20 at 12:00; Stop 03/10/20 at 11:58; Status DC Magnesium Oxide (Magnesium Oxide) 400 mg HS PO Last administered on 03/10/20at 20:51; Start 03/10/20 at 21:00 Metoprolol Tartrate (Lopressor) 100 mg BID PO Last administered on 03/11/20at 08:58; Start 03/10/20 at 12:00 Mycophenolate Sodium (Myfortic) 360 mg BID PO Last administered on 03/11/20at 08:58; Start 03/10/20 at 12:00 Non-Formulary Medication ([place]-3/Dha/Epa/ Fish Oil ([place] 3 500 Softgel)) 1 cap DAILY PO ; Start 03/11/20 at 09:00; Status UNV Ondansetron HCl (Zofran Odt) 4 mg PRN Q6HRS PRN PO NAUSEA/VOMITING; Start 03/10/20 at 12:00 Active Scripts Active Ondansetron Hcl 4 Mg Tablet 1 Tab PO PRN Q6HRS PRN 3 Days Reported Lasix (Furosemide) 20 Mg Tablet 1 Tab PO DAILY 30 Days Mag-Oxide (Magnesium Oxide) 200 Mg Tablet 1 Tab PO HS 30 Days [place] 3 500 Softgel ([place]-3/Dha/Epa/Fish Oil) 1 Each Capsule 1 Cap PO DAILY 30 Days Fish Oil 1,000 Mg Softgel ([place]-3 Fatty Acids/Fish Oil) 1 Each Capsule 1 Cap PO DAILY 30 Days Potassium Chloride (Potassium Chloride) 20 Meq Tablet.er 20 Meq PO BID Proair Respiclick (Albuterol Sulfate) 90 Mcg Aer.pow.ba 2 Puff IH PRN Q4-6HRS PRN Mycophenolic Acid (Mycophenolate Sodium) 360 Mg Tablet.dr 360 Mg PO BID Metoprolol Tartrate 100 Mg Tablet 1 Tab PO BID Tacrolimus 0.5 Mg Capsule 1 Mg PO HS Tacrolimus 0.5 Mg Capsule 1.5 Mg PO DAILY Vitals/I & O Vital Sign - Last 24 Hours 03/10/20 03/10/20 03/10/20 03/10/20 19:24 19:35 20:51 23:42 Temp 97.9 98.0 97.9 98.0 Pulse 84 84 66 Resp 18 18 B/P (MAP) 112/55 (74) 112/55 150/74 (99) Pulse Ox 95 96 O2 Delivery Room Air Room Air Room Air 03/11/20 03/11/20 03/11/20 03/11/20 03:00 07:00 08:00 08:58 Temp 98.0 97.7 98.0 97.7 Pulse 70 69 69 Resp 16 16 B/P (MAP) 179/84 (115) 150/85 (106) 150/85 Pulse Ox 93 94 O2 Delivery Room Air Room Air Room Air 03/11/20 11:00 Temp 97.7 97.7 Pulse 69 Resp 16 B/P (MAP) 108/55 (72) Pulse Ox 92 O2 Delivery Room Air Intake and Output 03/10/20 03/10/20 03/11/20 15:00 23:00 07:00 Intake Total 960 ml 500 ml Output Total 1750 ml 400 ml Balance -1750 ml 560 ml 500 ml Justifications for Admission Other Justification new onset chf with pulmonary edema ELLY JIMENES MD Mar 11, 2020 15:07
--- NOTE | 2020-03-11 15:50 | PDOC2 ---
CONSULT Date of Consult Date of Consult DATE: 03/11/20 TIME: 15:44 Reason for Consult Reason for Consult: Renal transplant Referring Physician Referring Physician: Jael Identification/Chief Complaint Chief Complaint Shortness of breath Source Source: Chart review, Patient History of Present Illness Reason for Visit: Ale is a pleasant 59-year-old female with a history of Goodpasture syndrome. She was treated with Cytoxan and steroids in the past. She was on hemo-dialysis in the past under the care of Dr. Ambriz. She is status post kidney transplant x7 years. She does not know what her baseline creatinine runs but does do blood work for the transplant center on every two monthly basis. She is not aware of known renal insufficiency. Of late she has had significant diarrhea on and off for the last 3 weeks. She has not seen a stomach doctor for the same. She took some Imodium and diarrhea has resolved. There is no blood in her stools by her reports. Patient presented for increasing shortness of breath as well as dyspnea on exertion. She has been diuresed overnight and has been evaluated by cardiology with plans for outpatient work-up. She is feeling much better and ambulating without any difficulty. She is eager on going home today Chest x-ray at presentation showed: Unchanged cardiomegaly, small pleural effusions, and probable pulmonary vascular congestion. She specifically denies hemoptysis hematemesis or epistaxis per se at this time. Past Medical History Cardiovascular: HTN Pulmonary: No pertinent hx GI: No pertinent hx Heme/Onc: No pertinent hx Hepatobiliary: No pertinent hx Psych: No pertinent hx Renal/: Chronic renal insuff Past Surgical History Past Surgical History: Appendectomy, Mastectomy, Other (Right kidney transplant in 2012) Family History Family History: Hypertension, Kidney Disease Social History Quit ALCOHOL: none Drugs: None Current Problem List Problem List Problems Medical Problems: (1) Hypertension Status: Acute (2) New onset of congestive heart failure Status: Acute (3) Pulmonary edema Status: Acute Current Medications Current Medications Current Medications Furosemide (Lasix) 40 mg 1X ONCE IVP Last administered on 03/10/20at 09:10; Start 03/10/20 at 09:00; Stop 03/10/20 at 09:06; Status DC Labetalol HCl (Normodyne Iv Push) 10 mg 1X ONCE IVP Last administered on 03/10/20at 09:09; Start 03/10/20 at 09:00; Stop 03/10/20 at 09:06; Status DC Sodium Chloride (Normal Saline Flush) 3 ml QSHIFT PRN IV AFTER MEDS AND BLOOD DRAWS; Start 03/10/20 at 10:00 Ondansetron HCl (Zofran) 4 mg PRN Q4HRS PRN IV NAUSEA/VOMITING; Start 03/10/20 at 10:00 Zolpidem Tartrate (Ambien) 5 mg PRN QHS PRN PO INSOMNIA; Start 03/10/20 at 10:00 Acetaminophen (Tylenol) 650 mg PRN Q4HRS PRN PO TEMP OVER 100.4F OR MILD PAIN; Start 03/10/20 at 10:00; Status UNV Al Hydroxide/Mg Hydroxide (Mylanta Plus Xs) 30 ml PRN DAILY PRN PO HEARTBURN / GAS; Start 03/10/20 at 10:00 Sodium Monofluorophosphate (Fleet Adult) 133 ml PRN DAILY PRN FL CONSTIPATION; Start 03/10/20 at 10:00; Stop 03/10/20 at 10:46; Status DC Docusate Sodium (Colace) 100 mg PRN BID PRN PO HARD STOOLS; Start 03/10/20 at 10:00 Albuterol Sulfate (Ventolin Neb Soln) 2.5 mg PRN Q4HRS PRN NEB SHORTNESS OF BREATH; Start 03/10/20 at 10:00 Guaifenesin (Robitussin) 200 mg PRN Q4HRS PRN PO COUGH; Start 03/10/20 at 10:00 Enoxaparin Sodium (Lovenox 40mg Syringe) 40 mg Q24H SQ Last administered on 03/11/20at 09:06; Start 03/10/20 at 11:00 Labetalol HCl (Normodyne Iv Push) 20 mg PRN Q2HR PRN IVP HYPERTENSION; Start 03/10/20 at 10:15 Furosemide (Lasix) 20 mg BID92 IVP Last administered on 03/11/20at 15:23; Start 03/10/20 at 10:30 Magnesium Sulfate 50 ml @ 25 mls/hr PRN DAILY PRN IV for Mag < 1.7 on am labs; Start 03/10/20 at 10:45 Fish Oil (Fish Oil) 1,000 mg DAILY PO Last administered on 03/11/20at 08:57; Start 03/10/20 at 12:00 Potassium Chloride (Klor-Con) 20 meq BIDWMEALS PO Last administered on 03/11/20at 08:57; Start 03/10/20 at 17:00 Tacrolimus (Prograf) 1 mg HS PO Last administered on 03/10/20at 20:52; Start 03/10/20 at 21:00 Tacrolimus (Prograf) 1.5 mg DAILY PO Last administered on 03/11/20at 08:58; Start 03/10/20 at 12:00 Non-Formulary Medication (Albuterol Sulfate (Proair Respiclick)) 2 puff PRN Q4-6HRS PRN IH shortness of breath; Start 03/10/20 at 12:00; Stop 03/10/20 at 11:58; Status DC Magnesium Oxide (Magnesium Oxide) 400 mg HS PO Last administered on 03/10/20at 20:51; Start 03/10/20 at 21:00 Metoprolol Tartrate (Lopressor) 100 mg BID PO Last administered on 03/11/20at 08:58; Start 03/10/20 at 12:00 Mycophenolate Sodium (Myfortic) 360 mg BID PO Last administered on 03/11/20at 08:58; Start 03/10/20 at 12:00 Non-Formulary Medication ([place]-3/Dha/Epa/ Fish Oil ([place] 3 500 Softgel)) 1 cap DAILY PO ; Start 03/11/20 at 09:00; Status UNV Ondansetron HCl (Zofran Odt) 4 mg PRN Q6HRS PRN PO NAUSEA/VOMITING; Start 03/10/20 at 12:00 Active Scripts Active Ondansetron Hcl 4 Mg Tablet 1 Tab PO PRN Q6HRS PRN 3 Days Reported Lasix (Furosemide) 20 Mg Tablet 1 Tab PO DAILY 30 Days Mag-Oxide (Magnesium Oxide) 200 Mg Tablet 1 Tab PO HS 30 Days [place] 3 500 Softgel ([place]-3/Dha/Epa/Fish Oil) 1 Each Capsule 1 Cap PO DAILY 30 Days Fish Oil 1,000 Mg Softgel ([place]-3 Fatty Acids/Fish Oil) 1 Each Capsule 1 Cap PO DAILY 30 Days Potassium Chloride (Potassium Chloride) 20 Meq Tablet.er 20 Meq PO BID Proair Respiclick (Albuterol Sulfate) 90 Mcg Aer.pow.ba 2 Puff IH PRN Q4-6HRS PRN Mycophenolic Acid (Mycophenolate Sodium) 360 Mg Tablet.dr 360 Mg PO BID Metoprolol Tartrate 100 Mg Tablet 1 Tab PO BID Tacrolimus 0.5 Mg Capsule 1 Mg PO HS Tacrolimus 0.5 Mg Capsule 1.5 Mg PO DAILY Allergies Allergies: Coded Allergies: acetaminophen (Verified Allergy, Intermediate, 03/27/19) codeine (Verified Allergy, Intermediate, 03/27/19) oxycodone (Verified Allergy, Intermediate, 03/27/19) tramadol (Verified Allergy, Intermediate, 03/27/19) ROS Review of System 14 point review of systems negative other than as reviewed under HPI Physical Exam Physical Exam General Appearance: Awake Alert Oriented x 3 In no Distress Eyes: VIsion Unchanged Conjunctiva Normal EN: No EN Drainage Mucous Memb. moist Neck: no JVD no JVP Supple no Thyromegaly CVS: S1 S2 no Murmur No Gallop No Rub no Edema Resp: no Rales no Rhonchi no Acc. Muscle use GI: BAS +ve NO Bruit Non Tender Non Distended : no CVA tenderness; no Suprapubic Tenderness SKIN: no Rashes Breast Exam deferred Mu.Sk: Adequate ROM no Muscle Atrophy Heme: Unable to palpate Obvious LAD no Splenomegaly NEURO: Good Strength and Tone Cranial Nerves II - XII grossly intact Psych: not Depressed no Active hallucination Vital Signs Vital Signs Date Time Temp Pulse Resp B/P (MAP) Pulse Ox O2 Delivery O2 Flow Rate FiO2 03/11/20 11:00 97.7 69 16 108/55 (72) 92 Room Air 97.7 Assessment & Plan Acute kidney injury in renal transplant: Creatinine mildly elevated after d iuresis. This may be her new baseline in a fluid optimize state Possible underlying chronic kidney disease stage III T cannot be ruled out. 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 Diarrhea and elevated LFTs: Consider GI evaluation CHF: Plans for evaluation as outpatient noted Renal transplant: Continue current immunosuppression with plans for labs in the middle of March and thereafter follow-up with us in April as already scheduled Patient eager to go home and hence no further work-up was ordered Labs Labs Laboratory Tests Test 03/10/20 08:09 03/10/20 12:36 03/11/20 05:00 White Blood Count 9.1 x10^3/uL (4.0-11.0) 5.7 x10^3/uL (4.0-11.0) Red Blood Count 4.53 x10^6/uL (3.50-5.40) 4.74 x10^6/uL (3.50-5.40) Hemoglobin 13.3 g/dL (12.0-15.5) 13.8 g/dL (12.0-15.5) Hematocrit 40.6 % (36.0-47.0) 42.5 % (36.0-47.0) Mean Corpuscular Volume 90 fL (79-100) 90 fL (79-100) Mean Corpuscular Hemoglobin 29 pg (25-35) 29 pg (25-35) Mean Corpuscular Hemoglobin Concent 33 g/dL (31-37) 33 g/dL (31-37) Red Cell Distribution Width 14.2 % (11.5-14.5) 14.3 % (11.5-14.5) Platelet Count 290 x10^3/uL (140-400) 294 x10^3/uL (140-400) Neutrophils (%) (Auto) 80 % (31-73) 56 % (31-73) Lymphocytes (%) (Auto) 9 % (24-48) 25 % (24-48) Monocytes (%) (Auto) 8 % (0-9) 13 % (0-9) Eosinophils (%) (Auto) 2 % (0-3) 5 % (0-3) Basophils (%) (Auto) 1 % (0-3) 1 % (0-3) Neutrophils # (Auto) 7.3 x10^3/uL (1.8-7.7) 3.2 x10^3/uL (1.8-7.7) Lymphocytes # (Auto) 0.8 x10^3/uL (1.0-4.8) 1.4 x10^3/uL (1.0-4.8) Monocytes # (Auto) 0.7 x10^3/uL (0.0-1.1) 0.7 x10^3/uL (0.0-1.1) Eosinophils # (Auto) 0.2 x10^3/uL (0.0-0.7) 0.3 x10^3/uL (0.0-0.7) Basophils # (Auto) 0.1 x10^3/uL (0.0-0.2) 0.1 x10^3/uL (0.0-0.2) Sodium Level 137 mmol/L (136-145) 144 mmol/L (136-145) Potassium Level 4.8 mmol/L (3.5-5.1) 3.9 mmol/L (3.5-5.1) Chloride Level 107 mmol/L (98-107) 108 mmol/L (98-107) Carbon Dioxide Level 24 mmol/L (21-32) 29 mmol/L (21-32) Anion Gap 6 (6-14) 7 (6-14) Blood Urea Nitrogen 24 mg/dL (7-20) 28 mg/dL (7-20) Creatinine 1.1 mg/dL (0.6-1.0) 1.4 mg/dL (0.6-1.0) Estimated GFR (Cockcroft-Gault) 51.0 38.6 BUN/Creatinine Ratio 22 (6-20) 20 (6-20) Glucose Level 121 mg/dL (70-99) 88 mg/dL (70-99) Calcium Level 8.8 mg/dL (8.5-10.1) 8.3 mg/dL (8.5-10.1) Total Bilirubin 1.4 mg/dL (0.2-1.0) 0.9 mg/dL (0.2-1.0) Aspartate Amino Transf (AST/SGOT) 49 U/L (15-37) 38 U/L (15-37) Alanine Aminotransferase (ALT/SGPT) 78 U/L (14-59) 65 U/L (14-59) Alkaline Phosphatase 108 U/L (46-116) 99 U/L (46-116) Troponin I Quantitative < 0.017 ng/mL (0.000-0.055) MA-Ewh-A-Type Natriuretic Peptide 7866 pg/mL (0-124) Total Protein 5.8 g/dL (6.4-8.2) 5.7 g/dL (6.4-8.2) Albumin 2.8 g/dL (3.4-5.0) 2.6 g/dL (3.4-5.0) Albumin/Globulin Ratio 0.9 (1.0-1.7) 0.8 (1.0-1.7) Thyroid Stimulating Hormone (TSH) 1.970 uIU/mL (0.358-3.74) Urine Collection Type Unknown Urine Color Yellow Urine Clarity Clear Urine pH 7.0 (<5.0-8.0) Urine Specific Carbon <=1.005 (1.000-1.030) Urine Protein Negative mg/dL (NEG-TRACE) Urine Glucose (UA) Negative mg/dL (NEG) Urine Ketones (Stick) Negative mg/dL (NEG) Urine Blood Negative (NEG) Urine Nitrite Negative (NEG) Urine Bilirubin Negative (NEG) Urine Urobilinogen Dipstick 0.2 mg/dL (0.2 mg/dL) Urine Leukocyte Esterase Negative (NEG) Urine RBC 0 /HPF (0-2) Urine WBC 0 /HPF (0-4) Urine Squamous Epithelial Cells Occ /LPF Urine Bacteria 0 /HPF (0-FEW) Urine Opiates Screen Neg (NEG) Urine Methadone Screen Neg (NEG) Urine Barbiturates Neg (NEG) Urine Phencyclidine Screen Neg (NEG) Urine Amphetamine/Methamphetamine Neg (NEG) Urine Benzodiazepines Screen Neg (NEG) Urine Cocaine Screen Neg (NEG) Urine Cannabinoids Screen Neg (NEG) Urine Ethyl Alcohol Neg (NEG) Phosphorus Level 4.1 mg/dL (2.6-4.7) Magnesium Level 2.0 mg/dL (1.8-2.4) Triglycerides Level 100 mg/dL (0-150) Cholesterol Level 268 mg/dL (0-200) LDL Cholesterol, Calculated 156 mg/dL (0-100) VLDL Cholesterol, Calculated 20 mg/dL (0-40) Non-HDL Cholesterol Calculated 176 mg/dL (0-129) HDL Cholesterol 92 mg/dL (40-60) Cholesterol/HDL Ratio 2.9 Laboratory Tests Test 03/11/20 05:00 White Blood Count 5.7 x10^3/uL (4.0-11.0) Red Blood Count 4.74 x10^6/uL (3.50-5.40) Hemoglobin 13.8 g/dL (12.0-15.5) Hematocrit 42.5 % (36.0-47.0) Mean Corpuscular Volume 90 fL (79-100) Mean Corpuscular Hemoglobin 29 pg (25-35) Mean Corpuscular Hemoglobin Concent 33 g/dL (31-37) Red Cell Distribution Width 14.3 % (11.5-14.5) Platelet Count 294 x10^3/uL (140-400) Neutrophils (%) (Auto) 56 % (31-73) Lymphocytes (%) (Auto) 25 % (24-48) Monocytes (%) (Auto) 13 % (0-9) Eosinophils (%) (Auto) 5 % (0-3) Basophils (%) (Auto) 1 % (0-3) Neutrophils # (Auto) 3.2 x10^3/uL (1.8-7.7) Lymphocytes # (Auto) 1.4 x10^3/uL (1.0-4.8) Monocytes # (Auto) 0.7 x10^3/uL (0.0-1.1) Eosinophils # (Auto) 0.3 x10^3/uL (0.0-0.7) Basophils # (Auto) 0.1 x10^3/uL (0.0-0.2) Sodium Level 144 mmol/L (136-145) Potassium Level 3.9 mmol/L (3.5-5.1) Chloride Level 108 mmol/L (98-107) Carbon Dioxide Level 29 mmol/L (21-32) Anion Gap 7 (6-14) Blood Urea Nitrogen 28 mg/dL (7-20) Creatinine 1.4 mg/dL (0.6-1.0) Estimated GFR (Cockcroft-Gault) 38.6 BUN/Creatinine Ratio 20 (6-20) Glucose Level 88 mg/dL (70-99) Calcium Level 8.3 mg/dL (8.5-10.1) Phosphorus Level 4.1 mg/dL (2.6-4.7) Magnesium Level 2.0 mg/dL (1.8-2.4) Total Bilirubin 0.9 mg/dL (0.2-1.0) Aspartate Amino Transf (AST/SGOT) 38 U/L (15-37) Alanine Aminotransferase (ALT/SGPT) 65 U/L (14-59) Alkaline Phosphatase 99 U/L (46-116) Total Protein 5.7 g/dL (6.4-8.2) Albumin 2.6 g/dL (3.4-5.0) Albumin/Globulin Ratio 0.8 (1.0-1.7) Triglycerides Level 100 mg/dL (0-150) Cholesterol Level 268 mg/dL (0-200) LDL Cholesterol, Calculated 156 mg/dL (0-100) VLDL Cholesterol, Calculated 20 mg/dL (0-40) Non-HDL Cholesterol Calculated 176 mg/dL (0-129) HDL Cholesterol 92 mg/dL (40-60) Cholesterol/HDL Ratio 2.9 Review All relevant outside records, renal labs, imaging studies, telemetry/EKG's were reviewed. Images Images Renal transplant duplex: FINDINGS: The liver is normal in size. No focal hepatic lesion is seen. The gallbladder is unremarkable. The common bile duct is normal in caliber. The pilot point kidneys are decreased in size and demonstrate echogenic parenchyma. There is a normal sized transplant kidney within the right lower quadrant. There is no hydronephrosis. The pancreas and spleen are unremarkable. The aorta is normal in caliber. The inferior vena cava is patent. IMPRESSION: 1. Atrophic pilot point kidneys with echogenic parenchyma consistent with medical renal disease. 2. Normal-appearing transplant kidney within the right lower quadrant. 3. No acute sonographic finding. Renal artery duplex does not appear to have been performed or reported MONICO BENNETT MD Mar 11, 2020 15:50
--- NOTE | 2020-03-11 15:52 | DISCH ---
DISCHARGE INSTRUCTIONS Condition on Discharge Condition on Discharge: Stable Activity After Discharge Activity Instructions for Disc: Activity as tolerated Driving Instructions after Dis: Do not drive today Diet after Discharge Diet after Discharge: Cardiac Checks after Discharge Checks after discharge: Check blood press - daily Contacting the DRMarie after DC Call your doctor for: If your condition worsens Follow-Up Follow up with: SEE PCP SOON, NEEDS ECHO SOON , SEE CARDIOLOGY SOON Treatment/Equipment after DC Adaptive Equipment Issued: None JACK SYLVESTER MD Mar 11, 2020 15:52
--- NOTE | 2020-03-11 16:24 | NUR ---
PATIENT IS DISCHARGED HOME. DISCHARGE INSTRUCTIONS GIVEN. PIV AND HEART MONITOR REMOVED. ESCORTED PATIENT OFF UNIT PER WHEELCHAIR INTO A PRIVATE VEHICLE.
== END 2020-03-11 16:28 | disposition home or self-care (01) | DRG 305 ==
LOC: ER 07:39 → 2 NORTH 08:58
PROVIDERS: ADMIT Internal Medicine; ATTEND Internal Medicine
DX: I16.0 Hypertensive urgency (principal); Z94.0 Kidney transplant status; I13.0 Hypertensive heart and chronic kidney disease with heart failure and stage 1 through stage 4 chronic kidney disease, or unspecified chronic kidney disease; E78.00 Pure hypercholesterolemia, unspecified; E78.5 Hyperlipidemia, unspecified; I50.9 Heart failure, unspecified; N18.9 Chronic kidney disease, unspecified; Z82.49 Family history of ischemic heart disease and other diseases of the circulatory system; Z90.12 Acquired absence of left breast and nipple; Z90.49 Acquired absence of other specified parts of digestive tract; R74.01 Elevation of levels of liver transaminase levels
CPT/HCPCS: 36415; 71045; 76700; 80053; 80061; 80307; 81001; 83735; 83880; 84100; 84443; 84484; 85025; 93005; J1650; J1940; J3490; J7507; G0378

== ENCOUNTER → 2020-04-03 | Outpatient (CLI) | payer OTHER ==
[2020-03-11 15:00] VITALS: BP 132/69
[~2020-04-03] MED LIST changes: +FURO-69 PO; +MAGN200T7 PO; +METO100T7 PO; +MYCO360T3 PO; +OMEG-128 PO; +OMEG1CAP50 PO; +POTA20TA4 PO; +PROAIR RESPICL90 MCG IH; +TACR0.5C2 PO
--- NOTE | 2020-04-03 15:58 | CARD ---
MR#: [id number] Date of Study: 04/03/2020 Ordering Physician: ELLY SLAUGHTER, Referring Physician: ELLY SLAUGHTER, Tech: Ana Katz [facility] APPROVED REPORT EXAM: Two-dimensional and M-mode echocardiogram with Doppler and color Doppler. Other Information Quality : GoodHR: 72bpm Rhythm : NSR INDICATION Dyspnea RISK FACTORS Hypertension 2D DIMENSIONS RVDd3.0 (2.9-3.5cm)Left Atrium(2D)3.2 (1.6-4.0cm) IVSd1.2 (0.7-1.1cm)Aortic Root(2D)3.1 (2.0-3.7cm) LVDd3.9 (3.9-5.9cm)LVOT Diameter2.1 (1.8-2.4cm) PWd1.1 (0.7-1.1cm)LVDs2.7 (2.5-4.0cm) FS (%) 32.2 %SV41.2 ml LVEF(%)61.1 (>50%) Aortic Valve AoV Peak Flynn.178.4cm/sAoV VTI42.6cm AO Peak GR.12.7mmHgLVOT Peak Flynn.141.1cm/s AO Mean GR.7mmHgAVA (VMAX)2.65cm2 Mitral Valve MV E Hxraatpv294.1cm/sMV DECEL TUOR384dr MV A Myikkhoj342.4cm/sE/A Ratio1.0 Pulmonary Valve PV Peak Eukplcpi325.7cm/s Tricuspid Valve TR P. Hecclxuo318dj/sTR Peak Gr.25mmHg LEFT VENTRICLE The left ventricle is normal size. There is mild left ventricular hypertrophy. The left ventricular s ystolic function is normal and the ejection fraction is within normal range. Estimated ejection frac tion 55-60%. There is normal LV segmental wall motion. RIGHT VENTRICLE The right ventricle is normal size. There is normal right ventricular wall thickness. The right ventr icular systolic function is normal. ATRIA The left atrium is mildly dilated. The right atrium is borderline dilated. The interatrial septum is intact with no evidence for an atrial septal defect or patent foramen ovale as noted on 2-D or Dopple r imaging. AORTIC VALVE The aortic valve is normal in structure and function. Doppler and Color Flow revealed no significant aortic regurgitation. There is no significant aortic valvular stenosis. MITRAL VALVE The mitral valve is normal in structure and function. There is no evidence of mitral valve prolapse. There is no mitral valve stenosis. Doppler and Color-flow revealed mild mitral regurgitation. TRICUSPID VALVE The tricuspid valve is normal in structure and function. Doppler and Color Flow revealed mild tricusp id regurgitation. Estimated PAP 50 mmHg. There is no tricuspid valve stenosis. PULMONIC VALVE The pulmonary valve is normal in structure and function. Doppler and Color Flow revealed no pulmonic valvular regurgitation. GREAT VESSELS The aortic root is normal in size. The ascending aorta is normal in size. The IVC is dilated and eric apses <50% with inspiration. PERICARDIAL EFFUSION There is a mild pericardial effusion with no evidence of hemodynamic compromise. Critical Notification Critical Value: No <Conclusion> The left ventricle is normal size. The left ventricular systolic function is normal and the ejection fraction is within normal range. Estimated ejection fraction 55-60%. There is mild left ventricular hypertrophy. Doppler and Color Flow revealed no significant aortic regurgitation. There is no significant aortic valvular stenosis. Doppler and Color-flow revealed mild mitral regurgitation. Doppler and Color Flow revealed mild tricuspid regurgitation. Estimated PAP 50 mmHg. There is a mild pericardial effusion with no evidence of hemodynamic compromise. Signed by : Elly Slaughter MD Electronically Approved : 04/03/2020 15:58:09
== END ==
LOC: ECHO 12:57
PROVIDERS: ATTEND Internal Medicine Cardiovascular Disease
DX: I08.1 Rheumatic disorders of both mitral and tricuspid valves (principal); I11.0 Hypertensive heart disease with heart failure
CPT/HCPCS: 93306

== ENCOUNTER → 2020-05-24 | Outpatient (CLI) | payer OTHER ==
--- NOTE | 2020-05-24 18:03 | RAD ---
Procedure: Renal Duplex ultrasound Clinical information: 60 year old woman with right pelvic renal transplant 7 years ago. Technique: Multiple longitudinal and transverse 2D real time grayscale and Doppler ultrasound images through the transplant kidney were acquired. Findings: Transplanted kidney in the right renal fossa measures 10.6 x 3.9 x 3.8 cm and shows no hydronephrosis , shadowing stones or perinephric fluid collection. Transplant right renal artery anastomoses to the right external iliac artery, which has a peak systol ic velocity of 182.4 cm/s. Peak systolic velocity in the abdominal aorta measures 114.5 cm/s Proximal renal artery peak systolic velocity measures 93.8 cm/s with a resistive index of 0.79 Middle renal artery peak systolic velocity measures 66 cm/s with a resistive index of 0.75 Distal renal artery peak systolic velocity measures 55.7 cm/s with a resistive index of 0.77 Renal to aortic ratio is 0.81 Renal to iliac ratio is 0.51 Normal waveform in the transplant renal vein. Impression: 1. Unremarkable right pelvic transplant renal ultrasound. No evidence of renal artery stenosis seen. Electronically signed by: Keely Gates MD (05/24/2020 6:01 PM) [id number]
== END ==
LOC: US 11:26
PROVIDERS: ATTEND Nurse Practitioner Adult Health
DX: Z94.0 Kidney transplant status (principal)
CPT/HCPCS: 76776

== ENCOUNTER → 2021-01-15 | Outpatient (CLI) | payer OTHER ==
--- NOTE | 2021-01-15 18:12 | CARD ---
MR#: [id number] Date of Study: 01/15/2021 Ordering Physician: ELLY SLAUGHTER, Referring Physician: ELLY SLAUGHTER, Tech: Juliane Hernandez, [facility] APPROVED REPORT EXAM: Two-dimensional and M-mode echocardiogram with Doppler and color Doppler. Other Information HR: 67bpm INDICATION Murmur 2D DIMENSIONS RVDd3.1 (2.9-3.5cm)Left Atrium(2D)3.0 (1.6-4.0cm) IVSd1.3 (0.7-1.1cm)Aortic Root(2D)3.0 (2.0-3.7cm) LVDd4.8 (3.9-5.9cm)LVOT Diameter2.1 (1.8-2.4cm) PWd1.2 (0.7-1.1cm)LVDs3.2 (2.5-4.0cm) FS (%) 34.3 %SV69.5 ml Aortic Valve AoV Peak Flynn.190.3cm/sAoV VTI37.1cm AO Peak GR.14.5mmHgLVOT Peak Flynn.165.9cm/s LVOT VTI 30.78cmAO Mean GR.8mmHg LUIS (VMAX)2.32on9JGE (VTI)2.74cm2 Mitral Valve MV E Geqzdblz480.2cm/sMV DECEL [id number] MV A Uxkpmstc12.8cm/sMV E Mean Gr.3mmHg MV KAS46weC/A Ratio1.0 MVA (PHT)4.26cm2 TDI E/Lateral E'14.5E/Medial E'16.2 Pulmonary Valve PV Peak Idqqewyb51.0cm/sPV Peak Grad.3mmHg Tricuspid Valve TR P. Tizcwizv031as/sRAP VRHCZFTE7spEk TR Peak Gr.37lxUlELVL67awCq Pulmonary Vein S1 Dgshnjsz41.2cm/sD2 Mscbuvwu73.8cm/s PVa llvpwpip93nccj LEFT VENTRICLE The left ventricle is normal size. There is mild to moderate concentric left ventricular hypertrophy. The left ventricular systolic function is normal and the ejection fraction is within normal range. T he Ejection Fraction is 50-55%. There is normal LV segmental wall motion. Transmitral Doppler flow pa ttern is Grade I-abnormal relaxation pattern. RIGHT VENTRICLE The right ventricle is normal size. There is normal right ventricular wall thickness. The right ventr icular systolic function is normal. ATRIA The left atrium size is normal. The right atrium size is normal. The interatrial septum is intact wit h no evidence for an atrial septal defect or patent foramen ovale as noted on 2-D or Doppler imaging. AORTIC VALVE The aortic valve is normal in structure and function. Doppler and Color Flow revealed trace to mild a ortic regurgitation. There is no significant aortic valvular stenosis. Mmaximum pressure gradient of 17 mmHg and mean pressure gradient of 8 mmHg. MITRAL VALVE The mitral valve is thickened but opens well. There is no evidence of mitral valve prolapse. There is no mitral valve stenosis. Doppler and Color-flow revealed trace mitral regurgitation. TRICUSPID VALVE The tricuspid valve is normal in structure and function. Doppler and Color Flow revealed trace to mil d tricuspid regurgitation with an estimated PAP of 44 mmHg. There is no tricuspid valve stenosis. PULMONIC VALVE The pulmonic valve is not well visualized. Doppler and Color Flow revealed mild pulmonic valvular reg urgitation. GREAT VESSELS The aortic root is normal in size. The IVC is dilated. PERICARDIAL EFFUSION There is no evidence of significant pericardial effusion. Critical Notification Critical Value: No <Conclusion> The left ventricle is normal size. The left ventricular systolic function is normal and the ejection fraction is within normal range. The Ejection Fraction is 50-55%. There is mild to moderate concentric left ventricular hypertrophy. Doppler and Color Flow revealed trace to mild aortic regurgitation. There is no significant aortic valvular stenosis. Doppler and Color-flow revealed trace mitral regurgitation. Doppler and Color Flow revealed trace to mild tricuspid regurgitation with an estimated PAP of 44 mmH g. Signed by : Elly Slaughter MD Electronically Approved : 01/15/2021 18:12:18
== END ==
LOC: ECHO 14:59
PROVIDERS: ATTEND Internal Medicine Cardiovascular Disease
DX: I08.8 Other rheumatic multiple valve diseases (principal); R01.1 Cardiac murmur, unspecified
CPT/HCPCS: 93306

== ENCOUNTER → 2021-06-11 | Outpatient (CLI) | payer OTHER ==
--- NOTE | 2021-06-11 16:07 | RAD ---
Right digital screening 2-D and 3-D (tomosynthesis) mammogram: Reason for examination: Routine screening. History of left breast carcinoma with mastectomy in 2006. Comparison is made to previous mammograms from 04/16/2017 and 04/27/2015. Bilateral mammograms in CC and oblique projections were obtained with 2-D imaging and 3-D tomosynthes is imaging and reviewed on the workstation. Interpretation was made with the benefit of CAD. Findings: Breast density: Category C. The breasts are heterogeneously dense, which may obscure small masses. There is a focal asymmetry in the 11:00 position of the right breast approximately 3.5 cm from the ni pple. This is better seen on MLO images. It is difficult to measure but estimated to be at least 5 mm . There some nodularity breast tissue in the retroareolar region which could be due to masses or dens e fibroglandular tissue. There are no malignant appearing calcifications or architectural distortion. Impression: Focal asymmetry in the 11:00 position of the right breast, approximately 3.5 cm from the nipple. Ther e is also some nodularity breast tissue in the right retroareolar region. Further evaluation with david gnostic right mammogram is recommended including 3-D rolled CC views and mediolateral view. Targeted right breast ultrasound should also be performed of the area of focal asymmetry and retroareolar anju on. ASSESSMENT: BI-RADS 0. Incomplete. Additional imaging is recommended. Recommendations: Diagnostic right mammogram. Targeted right breast ultrasound. The patient be contacted with results and asked to schedule for additional imaging. This patient's in formation has been entered into a reminder system for the patient to be notified with the results of her examination and a target date for the next mammogram. Your patient's mammogram demonstrates that she has dense breast tissue (breast density category C or D), which could hide abnormalities, and if she has other risk factors for breast cancer that have bee n identified, she might benefit from supplemental screening tests that may be suggested by you as her ordering physician. Dense breast tissue, in and of itself, is a relatively common condition. Therefo re, this information is not provided to cause undue concern, but rather to raise your awareness and t o promote discussion with your patient regarding the presence of other risk factors, in addition to d ense breast tissue. Electronically signed by: Tuyet Miranda MD (06/11/2021 4:04 PM) [id number]
== END ==
LOC: MAMMO 15:12
PROVIDERS: ATTEND Nurse Practitioner
DX: Z12.31 Encounter for screening mammogram for malignant neoplasm of breast (principal)
CPT/HCPCS: 77063; 77067

== ENCOUNTER → 2021-06-21 | Outpatient (CLI) | payer OTHER ==
--- NOTE | 2021-06-21 11:14 | RAD ---
DIAGNOSTIC RIGHT BREAST MAMMOGRAM AND RIGHT BREAST ULTRASOUND TECHNIQUE: Right breast 2-D and 3-D digital mammography. Rolled CC and full field ML projections. Gra yscale and color doppler ultrasound of the right breast. INDICATION: Callback for right breast asymmetry COMPARISON: 06/11/2021, 04/16/2017, 06/26/2015 FINDINGS: Breast Density: Category C: The breast tissue is heterogeneously dense, which could obscure detection of small masses. The focal asymmetry in the right upper outer breast middle third persists on rolled and tangential vi ews. No suspicious calcifications. Right breast ultrasound demonstrates a slightly irregular heterogeneously hypoechoic parallel mass wi th suggestion of spiculated margins. This measures 0.8 x 0.4 x 0.9 cm. Subtle posterior acoustic enha ncement. No suspicious axillary lymph nodes are identified. IMPRESSION: 1. Hypoechoic irregular mass right upper outer breast measuring 0.9 cm greatest dimension. ASSESSMENT: BI-RADS 4: Suspicious for Malignancy. RECOMMENDATION: Ultrasound-guided biopsy of right breast mass. Findings discussed in person with the patient by the radiologist. An order will be obtained from the patient's provider. The patient will be scheduled for ultrasound-guided biopsy. Your patient's mammogram demonstrates that she has dense breast tissue (breast density category C or D), which could hide abnormalities, and if she has other risk factors for breast cancer that have bee n identified, she might benefit from supplemental screening tests that may be suggested by you as her ordering physician. Dense breast tissue, in and of itself, is a relatively common condition. Therefo re, this information is not provided to cause undue concern, but rather to raise your awareness and t o promote discussion with your patient regarding the presence of other risk factors, in addition to d ense breast tissue. The facility will notify the patient of the results via mail. Patient information will be entered int o the mammography reminder system with a target recall date for the next mammogram. A reminder letter will be generated by the facility. Electronically signed by: Robin Ling MD (06/21/2021 11:11 AM) [id number]
== END ==
LOC: MAMMO 10:01
PROVIDERS: ATTEND Nurse Practitioner
DX: N63.10 Unspecified lump in the right breast, unspecified quadrant (principal); R92.8 Other abnormal and inconclusive findings on diagnostic imaging of breast
CPT/HCPCS: 76641; 77065; G0279; 77061

== ENCOUNTER → 2021-06-25 | Outpatient (CLI) | payer OTHER ==
--- NOTE | 2021-06-25 16:09 | RAD ---
EXAM: XR CHEST 2V 06/25/2021 2:53 PM CLINICAL INDICATION: Shortness of breath COMPARISON: Chest radiograph 03/10/2020 TECHNIQUE: PA and lateral views of the chest FINDINGS: Cardiomegaly is unchanged. Lungs are well-expanded. There is no consolidation, pleural eff usion, or pneumothorax. There are surgical clips in the left axillary region. There is a nodular opac ity right lung base, likely due to a superimposed old right anterior sixth rib fracture with callus f ormation. There is lumbar degenerative disc disease. There is a probable T11 compression fracture wit h about 30 percent height loss, new from 02/22/2020 but age indeterminate. IMPRESSION: 1. Unchanged cardiomegaly. 2. Nodular opacity in the right lung base is likely due to a superimposed old healed right anterior s ixth rib fracture with callus formation. 3. Probable T11 compression fracture with 30 percent height loss, new from 2019 but age indeterminat e. Electronically signed by: Gala Garvin MD (06/25/2021 4:07 PM) [id number]
== END ==
LOC: RAD 14:42
PROVIDERS: ATTEND Internal Medicine Pulmonary Disease
DX: I51.7 Cardiomegaly (principal); R91.1 Solitary pulmonary nodule; M51.36 Other intervertebral disc degeneration, lumbar region
CPT/HCPCS: 71046

== ENCOUNTER → 2021-07-23 | Outpatient (CLI) | payer OTHER ==
[~2021-07-23] MED LIST changes: +LIDOCAINE 1% Multi-Dose 20 ML VIAL. ONE
--- NOTE | 2021-07-24 07:47 | RAD ---
EXAM: Ultrasound-guided core biopsy right breast. Post clip placement mammogram of the right breast. HISTORY: Right breast BI-RADS 4 hypoechoic mass. COMPARISON: 06/21/2021, 06/11/2021. TECHNIQUE AND FINDINGS: The risks of the procedure were discussed and written and verbal consent was obtained. Sonographic evaluation of the right breast was performed, demonstrating the lesion of aide rn. The lesion of concern is in the 11:00 radial, 3 cm from the nipple measuring approximately 0.9 cm diameter. The skin overlying the lesion was prepped and draped using sterile technique. Local anesthesia was p rovided with 1% lidocaine. A small skin incision was made and 3 14-gauge core biopsies were obtained from the lesion of concern. Subsequently, a biopsy clip was advance to the site of biopsy. Full-field digital mammographic views of the right breast demonstrate the clip in expected position, with surrounding density consistent wi th immediate post-biopsy change adjacent to the asymmetry. Compression was applied to the biopsy site until there was no evidence of bleeding. The tissue fragm ents were placed into a 10% formalin solution and sent to pathology for histologic analysis. The karl ent tolerated the procedure without immediate complication and was discharged in stable condition. IMPRESSION: Successful ultrasound guided biopsy of right breast calcifications and post-biopsy clip placement. Pa thology is pending. Please refer to the separate report submitted by the Pathology Department for nixon mclain. Electronically signed by: Robin Ling MD (07/23/2021 1:37 PM) [id number]
== END | disposition home or self-care (01) ==
LOC: US 09:42
PROVIDERS: ATTEND Surgery
DX: N63.11 Unspecified lump in the right breast, upper outer quadrant (principal); I12.9 Hypertensive chronic kidney disease with stage 1 through stage 4 chronic kidney disease, or unspecified chronic kidney disease; N18.9 Chronic kidney disease, unspecified; Z85.3 Personal history of malignant neoplasm of breast; Z87.891 Personal history of nicotine dependence; Z99.2 Dependence on renal dialysis; Z79.899 Other long term (current) drug therapy; Z98.890 Other specified postprocedural states; Z88.5 Allergy status to narcotic agent; Z88.8 Allergy status to other drugs, medicaments and biological substances
CPT/HCPCS: 19083; 77065; A4648; C1819